=== PATIENT | male | born 1965 | race Caucasian/White ===

== ENCOUNTER 2018-09-09 03:57 | Emergency (ER) | payer OTHER ==
--- OUTSIDE RECORDS SUMMARY | 2018-09-09 04:00 | XMS REPORT ---
:1965 Author Organization [employer] Care Team Providers Name Role Phone Malachi Venancio Provider Role Unavailable Allergies, Adverse Reactions, Alerts Substance Reaction Event Type N.K.D.A. Info Not Available Non Drug Allergy Problems Problem Type Condition Code Onset Dates Condition Status Problem History of basal cell cancer Z85.828 Active Problem HTN, goal below 140/90 I10 Active Problem Anxiety F41.9 Active Assessment Anxiety F41.9 Active Assessment History of basal cell cancer Z85.828 Active Assessment HTN, goal below 140/90 I10 Active Medications Medication Code Code Instructions Start End Status Dosage System Date Date Lisinopril-Hyd [facility] 52266423519 20-25 MG Orally Active 1.5 tablet rochlorothiazi Once a day de Centrum Silver [facility] [id number] - Orally Active as directed BusPIRone HCl [facility] [id number] 30 MG Orally Active 1 tablet Twice a day Results No Known Results Summary Purpose [employer] Submission
[2018-09-09] MEDS ORDERED: ALBUTEROL 2.5 MG/3 ML NEB SOL ONE (05:02)
--- NOTE | 2018-09-09 05:25 | EDPHYS ---
Physician Documentation [facility] Name: Baldemar Garcia Age: 53 yrs Sex: Male : 1965 Arrival Date: 09/09/2018 Time: 03:59 Bed 15 Private MD: ED Physician Patricio Olvera HPI: 09/09 05:20 This 53 yrs old Male presents to ER via Ambulatory with complaints of Cough, gs Breathing Difficulty. 05:20 The patient or guardian reports cough, described as mild. Onset: The symptoms/episode gs began/occurred 5 day(s) ago. Severity of symptoms: At their worst the symptoms were moderate, in the emergency department the symptoms are unchanged. Modifying factors: The symptoms are alleviated by nothing, the symptoms are aggravated by cold weather. Associated signs and symptoms: Pertinent positives: SINUS CONGESTION. The patient has experienced similar episodes in the past, a few times. Historical: - Allergies: 04:11 No Known Allergies; fc - Home Meds: 04:11 lisinopril-hydrochlorothiazide 20-25 mg oral tab 1 tab once daily [Active]; Nexium 40 fc mg Oral cpDR 1 cap daily prn [Active]; - PMHx: 04:11 Hypertension; GERD; fc - PSHx: 04:11 Knee surgery; fc - Immunization history:: Last tetanus immunization: unknown, Flu vaccine is not up to date. - Social history:: Smoking status: Patient/guardian denies using tobacco, Patient uses alcohol, on a daily basis. claims drinking about a 6 pack/day. - Ebola Screening: : Patient negative for fever greater than or equal to 101.5 degrees Fahrenheit, and additional compatible Ebola Virus Disease symptoms Patient denies exposure to infectious person Patient denies travel to an Ebola-affected area in the 21 days before illness onset. ROS: 05:20 All other systems are negative. gs Exam: 05:16 ECG was reviewed by the Attending Physician. gs 05:20 Eyes: Pupils equal round and reactive to light, extra-ocular motions intact. Lids and gs lashes normal. Conjunctiva and sclera are non-icteric and not injected. Cornea within normal limits. Periorbital areas with no swelling, redness, or edema. ENT: Nares patent. No nasal discharge, no septal abnormalities noted. Tympanic membranes are normal and external auditory canals are clear. Oropharynx with no redness, swelling, or masses, exudates, or evidence of obstruction, uvula midline. Mucous membranes moist. Neck: Trachea midline, no thyromegaly or masses palpated, and no cervical lymphadenopathy. Supple, full range of motion without nuchal rigidity, or vertebral point tenderness. No Meningismus. Chest/axilla: Normal chest wall appearance and motion. Nontender with no deformity. No lesions are appreciated. 05:20 Abdomen/GI: Soft, non-tender, with normal bowel sounds. No distension or tympany. No guarding or rebound. No evidence of tenderness throughout. Back: No spinal tenderness. No costovertebral tenderness. Full range of motion. Skin: Warm, dry with normal turgor. Normal color with no rashes, no lesions, and no evidence of cellulitis. MS/ Extremity: Pulses equal, no cyanosis. Neurovascular intact. Full, normal range of motion. Neuro: Awake and alert, GCS 15, oriented to person, place, time, and situation. Cranial nerves II-XII grossly intact. Motor strength 5/5 in all extremities. Sensory grossly intact. Cerebellar exam normal. Normal gait. 05:20 Constitutional: The patient appears alert, awake. 05:20 Head/face: Sinus tenderness, that is moderate, is located over the right maxillary sinus and left maxillary sinus. 05:20 Cardiovascular: Rate: tachycardic, Rhythm: regular, Pulses: no pulse deficits are appreciated. 05:20 Respiratory: the patient does not display signs of respiratory distress, Respirations: no acute changes, is not noted, accessory muscle usage, is absent, Breath sounds: rhonchi, that are mild, are scattered. Vital Signs: 04:00 BP 130 / 101; Pulse 108; Resp 20; Temp 98.0(O); Pulse Ox 99% on R/A; Weight 92.99 kg fc (R); Height 5 ft. 8 in. (172.72 cm) (R); Pain 3/10; 05:25 BP 142 / 87; Pulse 103; Resp 20 S; Pulse Ox 99% on R/A; cc3 04:00 Body Mass Index 31.17 (92.99 kg, 172.72 cm) MDM: 04:40 Patient medically screened. 05:20 Differential Diagnosis: Bronchitis Upper Respiratory Infection Sinusitis. Data gs reviewed: vital signs, nurses notes, EKG, radiologic studies. Response to treatment: the patient's symptoms have mildly improved after treatment, and as a result, I will discharge patient. 09/09 04:21 Order name: XRAY Chest Pa And Lat (2 Views) 09/09 04:40 Order name: EKG - Nurse/Tech; Complete Time: 05:02 EC:16 Rate is 87 beats/min. Rhythm is regular. ID interval is normal. QRS interval is normal. gs QT interval is normal. T waves are Flattened. Clinical impression: NSR w/ Non-specific ST/T Changes. Interpreted by me. Administered Medications: 05:00 Drug: Albuterol 2.5 mg Route: Inhalation; cc3 05:30 Follow up: Response: No adverse reaction; Marked relief of symptoms cc3 Disposition: 09/09/18 05:24 Discharged to Home. Impression: Acute maxillary sinusitis. - Condition is Stable. - Discharge Instructions: Sinusitis, Adult. - Prescriptions for Prednisone 20 mg Oral Tablet - take 1 tablet by ORAL route once daily for 5 days; 5 tablet. Zithromax Z- Bal 250 mg Oral Tablet - take 1 tablet by ORAL route as directed for 5 days Day 1 - take two (2) tablets one time. Day 2, 3, 4 , 5 take one (1) tablet once daily.; 6 tablet. Albuterol Sulfate 90 mcg/actuation - inhale 1-2 puff by INHALATION route every 4-6 hours; 1 Inhaler. - Medication Reconciliation Form, Thank You Letter, Antibiotic Education, Prescription Opioid Use form. - Follow up: Private Physician; When: 2 - 3 days; Reason: Re-evaluation by your physician. - Notes: USE SALINE NASAL IRRIGATION 3-4 TIMES A DAY, ZYRTEC PRN Signatures: Dispatcher [employer] EDKS Fátima Scruggs RN RN Patricio Downs MD MD gs Cordel, Charlene cc3 Corrections: (The following items were deleted from the chart) 05:37 05:24 09/09/2018 05:24 Discharged to Home. Impression: Acute maxillary sinusitis. cc3 Condition is Stable. Forms are Medication Reconciliation Form, Thank You Letter, Antibiotic Education, Prescription Opioid Use. Follow up: Private Physician; When: 2 - 3 days; Reason: Re-evaluation by your physician.
--- NOTE | 2018-09-09 05:25 | ER ---
Nurse's Notes [facility] Name: Baldemar Garcia Age: 53 yrs Sex: Male : 1965 Arrival Date: 09/09/2018 Time: 03:59 Bed 15 Private MD: Diagnosis: Acute maxillary sinusitis Presentation: 09/09 04:00 Presenting complaint: Patient states: that for the past week he has had severe sinus fc problems. 2 days ago he started to have sore throat, cough with green sputum, runny eyes and nasal congestion. States that only when he coughs does he have upper chest pain. Transition of care: patient was not received from another setting of care. Onset of symptoms was September 02, 2018. Risk Assessment: Do you want to hurt yourself or someone else? Patient reports no desire to harm self or others. Initial Sepsis Screen: Does the patient meet any 2 criteria? HR > 90 bpm. Yes Does the patient have a suspected source of infection? No. Patient's initial sepsis screen is negative. Care prior to arrival: None. 04:00 Method Of Arrival: Ambulatory fc 04:00 Acuity: OLEG 3 fc Triage Assessment: 04:12 General: Appears uncomfortable, well groomed, Behavior is cooperative, appropriate for fc age, anxious. Pain: Complains of pain in neck Pain currently is 3 out of 10 on a pain scale. at worst was 9 out of 10 on a pain scale. Quality of pain is described as burning, aching, Pain began 2-3 days ago. Is episodic, Aggravated by eating, drinking, coughing. EENT: Reports nasal congestion nasal discharge that is green. Neuro: Level of Consciousness is awake, alert, obeys commands, Oriented to person, place, time, situation, Appropriate for age. Cardiovascular: No deficits noted. Respiratory: Reports cough that is productive, pain with cough Airway is patent Trachea midline Respiratory effort is even, unlabored, Respiratory pattern is regular, symmetrical, Onset: The symptoms/episode began/occurred gradually, the patient has mild shortness of breath. GI: No deficits noted. : No deficits noted. Derm: Skin is intact, Skin is dry, Skin is flushed, Skin temperature is warm. Musculoskeletal: Circulation, motion, and sensation intact. Capillary refill < 3 seconds, Range of motion: intact in all extremities. Historical: - Allergies: 04:11 No Known Allergies; fc - Home Meds: 04:11 lisinopril-hydrochlorothiazide 20-25 mg oral tab 1 tab once daily [Active]; Nexium 40 fc mg Oral cpDR 1 cap daily prn [Active]; - PMHx: 04:11 Hypertension; GERD; fc - PSHx: 04:11 Knee surgery; fc - Immunization history:: Last tetanus immunization: unknown, Flu vaccine is not up to date. - Social history:: Smoking status: Patient/guardian denies using tobacco, Patient uses alcohol, on a daily basis. claims drinking about a 6 pack/day. - Ebola Screening: : Patient negative for fever greater than or equal to 101.5 degrees Fahrenheit, and additional compatible Ebola Virus Disease symptoms Patient denies exposure to infectious person Patient denies travel to an Ebola-affected area in the 21 days before illness onset. Screenin:10 Abuse screen: Denies threats or abuse. Nutritional screening: No deficits noted. fc Tuberculosis screening: No symptoms or risk factors identified. Fall Risk None identified. Assessment: 04:15 General: Appears in no apparent distress. comfortable, Behavior is calm, cooperative, cc3 appropriate for age. Pain: Complains of pain in neck. Neuro: Level of Consciousness is awake, alert, obeys commands, Oriented to person, place, time, situation, Appropriate for age. Cardiovascular: Patient's skin is warm and dry. Rhythm is regular. Respiratory: Airway is patent Respiratory effort is even, unlabored, Respiratory pattern is regular, symmetrical, Breath sounds with rhonchi bilaterally. GI: Abdomen is round non-distended. : No signs and/or symptoms were reported regarding the genitourinary system. EENT: No signs and/or symptoms were reported regarding the EENT system. Derm: No signs and/or symptoms reported regarding the dermatologic system. Musculoskeletal: Circulation, motion, and sensation intact. Range of motion:. 05:30 Reassessment: Patient appears in no apparent distress at this time. Patient and/or cc3 family updated on plan of care and expected duration. Pain level reassessed. Patient is alert, oriented x 3, equal unlabored respirations, skin warm/dry/pink. Dr. Olvera discharged the patient home with prescription given. No IV cannula in situ. Patient left ER vitally stable and ambulatory. Vital Signs: 04:00 BP 130 / 101; Pulse 108; Resp 20; Temp 98.0(O); Pulse Ox 99% on R/A; Weight 92.99 kg (R); Height 5 ft. 8 in. (172.72 cm) (R); Pain 3/10; 05:25 BP 142 / 87; Pulse 103; Resp 20 S; Pulse Ox 99% on R/A; cc3 04:00 Body Mass Index 31.17 (92.99 kg, 172.72 cm) ED Course: 03:59 Patient arrived in ED. ds1 04:00 Arm band placed on Patient placed in an exam room, on a stretcher. 04:07 Patricio Olvera MD is Attending Physician. 04:08 Triage completed. fc 04:10 Patient has correct armband on for positive identification. Bed in low position. Call light in reach. Pulse ox on. NIBP on. 04:10 No provider procedures requiring assistance completed. fc 04:15 Flavia Claire is Primary Nurse. cc3 04:41 Patient moved to radiology via wheelchair. kw 04:41 X-ray completed. Patient tolerated procedure well. kw 04:41 Patient moved back from radiology. kw 04:42 XRAY Chest Pa And Lat (2 Views) In Process Unspecified. EDMS 05:30 Patient did not have IV access during this emergency room visit. cc3 Administered Medications: 05:00 Drug: Albuterol 2.5 mg Route: Inhalation; cc3 05:30 Follow up: Response: No adverse reaction; Marked relief of symptoms cc3 Outcome: 05:24 Discharge ordered by . 05:30 Discharged to home ambulatory. cc3 05:30 Condition: stable 05:30 Discharge instructions given to patient, Instructed on discharge instructions, follow up and referral plans. medication usage, Demonstrated understanding of instructions, follow-up care, medications, Prescriptions given X 3. 05:37 Patient left the ED. cc3 Signatures: Dispatcher [employer] EDKS Fátima Scruggs RN RN Shadia Montero ds1 Mag Pritchard kw Patricio Olvera MD MD gs Cordel, Charlene cc3 Corrections: (The following items were deleted from the chart) 05:53 04:15 Respiratory: Airway is patent Respiratory effort is even, unlabored, Respiratory cc3 pattern is regular, symmetrical, Breath sounds are clear bilaterally. cc3
--- NOTE | 2018-09-09 08:46 | RAD REPORT ---
EXAM DESCRIPTION: Cassie Brown (2 Views)09/09/2018 4:44 am CLINICAL HISTORY: Cough COMPARISON: July 2017 FINDINGS: The lungs appear clear of acute infiltrate. The heart is normal size IMPRESSION: No acute abnormalities displayed
--- NOTE | 2018-09-09 12:17 | EKG ---
Test Date: 2018-09-09 Test Time: 04:56:36 Rehab Office Coordinator: KONRAD MEASUREMENT RESULTS: Intervals: Rate: 87 OK: 180 QRSD: 90 QT: 364 QTc: 438 Gary: P: 38 OK: 180 QRS: 15 T: 15 INTERPRETIVE STATEMENTS: Normal sinus rhythm Normal ECG Compared to ECG 08/04/2017 20:05:58 Sinus tachycardia no longer present ST (T wave) deviation no longer present Electronically Signed On 09-09-18 12:16:45 CDT by Francisco Hua
== END 2018-09-09 05:37 | disposition home or self-care (01) ==
LOC: ER 03:57
DX: J01.00 Acute maxillary sinusitis, unspecified (principal); I10 Essential (primary) hypertension
CPT/HCPCS: 71046; 93005; 99284

== ENCOUNTER 2022-06-26 05:46 | Inpatient (IN) | payer OTHER, SELFPAY ==
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
[2022-06-26] MEDS ORDERED: NA CHLORIDE 0.9% 1,000 ML ONE ×2 (06:15→07:06)
[2022-06-26 06:42] LABS: Hematocrit 34.8 % (39.6-49.0); Lymphocytes % 9.8 % (15.3-44.8); MCV 104.8 fL (80-100); MPV 8.3 fL (7.6-11.3); RBC Red Blood Cell Count 3.32 M/uL (4.33-5.43)
[2022-06-26] MEDS ORDERED: PANTOPRAZOLE 40 MG INJ ONE (06:42)
[2022-06-26 07:02] LABS: Troponin High Sensitivity 10.5 pg/mL (<58.9)
[2022-06-26 07:04] LABS: Potassium 1.9 mmol/L (3.5-5.1)
[2022-06-26] MEDS ORDERED: NA CHLORIDE 0.9% 100 ML IV ONE (07:23)
[2022-06-26] MEDS ORDERED: PIPERACIL/TAZO 3.375 GM VIAL IV ONE (07:24)
--- NOTE | 2022-06-26 07:42 | RAD REPORT ---
EXAM DESCRIPTION: RAD - Chest Single View - 06/26/2022 6:38 am CLINICAL HISTORY: Dizziness COMPARISON: Two view chest 09/09/2018 TECHNIQUE: AP portable chest image was obtained 06/26/2022 6:38 am . FINDINGS: Lungs are clear. Heart and vasculature are normal. No measurable pleural effusion and no p neumothorax. No acute bony abnormality seen. No acute aortic findings suspected. No significant taveras e from comparison study. IMPRESSION: No acute cardiopulmonary process.
--- NOTE | 2022-06-26 07:57 | RAD REPORT ---
EXAM DESCRIPTION: CT - Chest Abd Pelvis Wo Con - 06/26/2022 7:22 am CLINICAL HISTORY: PAIN COMPARISON: No comparisons TECHNIQUE: Axial 5 millimeter thick images of the chest, abdomen and pelvis were obtained without IV contrast. Oral contrast was not administered. All CT scans are performed using dose optimization technique as appropriate and may include automated exposure control or mA/KV adjustment according to patient size. FINDINGS: No suspicious mass or infiltrate in the lung parenchyma. Two small less than 5 mm juxtaple ural nodules are seen along the major fissure right lower lung field. These are not regarded as signi ficant. No pneumothorax or pleural effusion. No chest wall mass or abnormal axillary lymphadenopath y seen. Mediastinal and hilar regions show no mass or lymphadenopathy. No significant cardiac findi ng. No displaced rib fractures are present. There are fractures evident near the costochondral juncti ons of the right seventh and eighth ribs and the left seventh rib. Air is present within the right ax illary vein and brachiocephalic vein. This is probably related to IV access in the right upper extrem ity. The liver, spleen and pancreas show no acute findings for non contrast imaging. Liver attenuation rel ative to the spleen indicates a diffuse fatty infiltration. No biliary tree dilatation. There is slig ht variable density within the lumen of the gallbladder that could be stones or sludge. Wall thickeni ng and edema of the gallbladder are not evident. No hydronephrosis of either kidney. No obstructing or nonobstructing calculi. In the anterior mid rig ht kidney there is a homogeneous 18 mm round hyperdense mass. This is most likely a high protein cont ent cyst. No comparison is available. Follow-up outpatient ultrasound could be performed to confirm t hat this is a cyst. Isodense masses and pyelonephritis cannot be excluded on non contrast imaging. No adrenal abnormalities. No urinary bladder abnormalities. No dilated bowel loops or focal ball bowel wall thickening. No free air, free fluid or inflammatory stranding. No hernia, mass or bulky lymphadenopathy. Appendix is normal. SI joint degenerative changes are present with partial fusion of the right SI joint. No vertebral bod y compression fracture. Sternum is intact. Facet joint degenerative changes are present. Patient has prominent degenerative changes in the midthoracic spine. No pathologic component seen. IMPRESSION: Nondisplaced fractures are present near the costochondral junctions of the right seventh and eighth ribs and the left seventh rib. No pulmonary contusion, pneumothorax or other acute findings in the chest. No acute or emergent abdomen or pelvis findings. Nonacute findings are detailed in the body of the re port. CT abdomen and pelvis imaging shows no significant or suspicious finding.
[2022-06-26] MEDS ORDERED: POTASSIUM CL SA 10 MEQ TAB PO ONE ×2 (07:58→16:00)
[2022-06-26 08:02] LABS: SARS-COV-2 RT PCR NEGATIVE (NEGATIVE)
[2022-06-26 08:10] LABS: Anisocytosis 1+; Blood Morphology Comment NOTED (NOT SEEN); Hypochromasia 1+; Macrocytosis 1+; Platelet Estimate ADEQ; White Blood Cell Scan OK (OK)
--- NOTE | 2022-06-26 08:41 | RAD REPORT ---
EXAM DESCRIPTION: CT - CTHCSPWOC - 06/26/2022 8:29 am CLINICAL HISTORY: fall, head injury, neck pain COMPARISON: No comparisons TECHNIQUE: Axial 5 mm thick images of the head were obtained. Axial 2 mm thick images of the cervic al spine were obtained with sagittal and coronal reconstruction images generated and reviewed. All CT scans are performed using dose optimization technique as appropriate and may include automated exposure control or mA/KV adjustment according to patient size. FINDINGS: No intracranial hemorrhage, mass, edema or acute intracranial finding. No suspicion for ac hu infarction. No extra-axial fluid collections. No cortical edema or sulcal effacement. Volume loss changes are evident greater than expected for age. Ventricles are in proportion to any volume loss. Mild chronic ischemic pattern seen in the cerebral white matter. Mastoid air cells and paranasal sinu ses are clear. No globe or orbit abnormality seen. Cervical body height and alignment are normal. C5-6 disc space narrowing present with endplate spurri ng. Uncovertebral joint hypertrophy at this level causes mild left-side and severe right-side bony fo raminal stenosis. No fracture or acute bony abnormality. Central canal detail is inherently limited. No paraspinal mass or hematoma. IMPRESSION: Negative CT head examination for acute finding. Negative CT cervical spine examination for acute finding. Advanced degenerative disc disease at C5-6 with severe bony foraminal stenosis on the right.
[2022-06-26 10:37] LABS: Urine Blood Negative (Negative); Urine Glucose Negative (Negative); Urine Protein Negative (Negative)
--- NOTE | 2022-06-26 10:43 | ER ---
Nurse's Notes [facility] Name: Baldemar Garcia Age: 57 yrs Sex: Male : 1965 Arrival Date: 06/26/2022 Time: 05:49 Bed 19 Private MD: Diagnosis: Severe sepsis with septic shock;Acute kidney injury;Hypokalemia;Hypomagnesemia Presentation: 06/26 06:05 Chief complaint: Patient states: he has been dizzy for the last three weeks and it is bb getting worse pt fell twice last night the dizziness is like a "disoriented dizzy". Coronavirus screen: At this time, the client does not indicate any symptoms associated with coronavirus-19. Ebola Screen: No symptoms or risks identified at this time. 06:05 Method Of Arrival: Wheelchair bb 06:07 Initial Sepsis Screen: Does the patient meet any 2 criteria? No. Patient's initial bb sepsis screen is negative. Does the patient have a suspected source of infection? No. Patient's initial sepsis screen is negative. Risk Assessment: Do you want to hurt yourself or someone else? Patient reports no desire to harm self or others. Onset of symptoms was May 2022. 06:07 Acuity: OLEG 2 bb Historical: - Allergies: 06:07 No Known Allergies; bb - Home Meds: 06:07 lisinopril-hydrochlorothiazide 20-25 mg Oral tab 1 tab once daily [Active]; bb - PMHx: 06:07 GERD; Hypertension; bb - PSHx: 06:07 bilateral knee surgery; bb - Immunization history:: Client reports having NOT received the Covid vaccine. - Social history:: Smoking status: Patient denies any tobacco usage or history of. Screenin:35 [facility] ED Fall Risk Assessment (Adult) History of falling in the last 3 months, ap3 including since admission No falls in past 3 months (0 pts) Confusion or Disorientation No (0 pts) Intoxicated or Sedated No (0 pts) Impaired Gait Yes (1 pt) Mobility Assist Device Used No (0 pt) Altered Elimination No (0 pt) Score/Fall Risk Level 3 or more points = High Risk Oriented to surroundings, Maintained a safe environment, Educated pt \\T\\ family on fall prevention, incl call for assistance when getting out of bed, Assessed \\T\\ reinforced patient's understanding of fall precautions, Provided non-skid footwear, Hourly rounding (assess needs \\T\\ fall precautionary measures) done, Used ambulatory aids as needed (educated on \\T\\ assisted with), Used gait belt as appropriate Implemented a Fall Risk Plan of Care, Remained with patient while ambulating. Abuse screen: Denies threats or abuse. Nutritional screening: No deficits noted. Tuberculosis screening: No symptoms or risk factors identified. Assessment: 07:36 General: Appears ill, Behavior is calm, cooperative, appropriate for age, Reports ap3 fatigue for. Pain: Denies pain. Neuro: Reports dizziness, when standing. Cardiovascular: Patient's skin is warm and dry. Respiratory: Airway is patent Respiratory effort is even, unlabored, Respiratory pattern is regular, symmetrical. 09:15 Reassessment: Patient appears in no apparent distress at this time. Patient and/or kr3 family updated on plan of care and expected duration. Pain level reassessed. Patient is alert, oriented x 3, equal unlabored respirations, skin warm/dry/pink. 10:15 Reassessment: Patient appears in no apparent distress at this time. Patient and/or kr3 family updated on plan of care and expected duration. Pain level reassessed. Patient is alert, oriented x 3, equal unlabored respirations, skin warm/dry/pink. 12:07 Reassessment: Patient appears in no apparent distress at this time. Patient and/or kr3 family updated on plan of care and expected duration. Pain level reassessed. patient states " I am feeling better than when I got here". Patient now had diarrhea and has made 4 trips to the bathroom.. 13:59 Reassessment: Patient appears in no apparent distress at this time. Patient and/or kr3 family updated on plan of care and expected duration. Pain level reassessed. Patient is alert, oriented x 3, equal unlabored respirations, skin warm/dry/pink. patient has had several BM . 18:50 Reassessment: Patient appears in no apparent distress at this time. Patient and/or kr3 family updated on plan of care and expected duration. Pain level reassessed. Patient is alert, oriented x 3, equal unlabored respirations, skin warm/dry/pink. Vital Signs: 06:05 BP 69 / 53; Pulse 104; Resp 16 S; Temp 97.9(O); Pulse Ox 98% on R/A; Weight 79.38 kg bb (R); Height 5 ft. 8 in. (172.72 cm) (R); Pain 0/10; 07:34 BP 83 / 70; Pulse 77; Resp 17; Pulse Ox 94% ; ap3 07:49 BP 87 / 68; Pulse 79; Pulse Ox 97% on R/A; ap3 08:06 BP 95 / 65; Pulse 83; Pulse Ox 97% on R/A; ap3 09:37 BP 106 / 65; Pulse 78; Resp 18; Pulse Ox 100% ; kr3 10:35 BP 99 / 74; Pulse 77; Resp 18; Pulse Ox 98% on R/A; kr3 11:30 BP 99 / 73; Pulse 79; Resp 18; Pulse Ox 100% on R/A; kr3 12:30 BP 98 / 59; Pulse 72; Resp 18; Pulse Ox 99% on R/A; kr3 13:30 BP 92 / 55; Pulse 74; Resp 18; Pulse Ox 100% on R/A; kr3 18:50 BP 96 / 64; Pulse 62; Pulse Ox 100% on R/A; kr3 06:05 Body Mass Index 26.61 (79.38 kg, 172.72 cm) bb ED Course: 05:49 Patient arrived in ED. ja2 06:07 Triage completed. bb 06:07 Arm band placed on Patient placed in an exam room, on a stretcher, on pulse oximetry. bb 06:19 Initial lab(s) drawn, by pa, sent to lab. Inserted saline lock: 22 gauge in right ll3 antecubital area, using aseptic technique. Blood collected. 06:22 Jesse Lowery MD is Attending Physician. trav 06:39 XRAY Chest (1 view) In Process Unspecified. EDMS 06:47 Notified ED physician of a critical lab result(s). WBCs of 20.1 Dr Lowery notified. bb 07:08 Attending Physician role handed off by Jesse Lowery MD sd2 07:08 Madyson Robert MD is Attending Physician. sd2 07:10 Mariely Hogue, RN is Primary Nurse. ap3 07:24 Chest Abd Pelvis Wo Con In Process Unspecified. EDMS 07:37 Patient has correct armband on for positive identification. Placed in gown. Bed in low ap3 position. Call light in reach. Side rails up X2. supervisor paper products on. Pulse ox on. NIBP on. Door closed. Noise minimized. Warm blanket given. 08:13 ED physician to see patient. ap3 08:29 Missed attempt(s): 22 gauge in left antecubital area. rs5 08:30 CT Head C Spine In Process Unspecified. EDMS 10:40 Pk Low is Hospitalizing Provider. sd2 12:48 Stool Culture Sent. kr3 18:50 No provider procedures requiring assistance completed. Patient admitted, IV remains in kr3 place. Administered Medications: 06:34 Drug: NS 0.9% 1000 ml Route: IV; Rate: 1 bolus; Site: right antecubital; ll3 06:50 Drug: ProTONIX (pantoprazole) 40 mg Route: IVP; Site: right antecubital; ll3 08:57 Follow up: Response: No adverse reaction ap3 07:05 Drug: NS 0.9% 1000 ml Route: IV; Rate: 1 bolus; Site: right antecubital; ll3 08:57 Follow up: IV Status: Completed infusion ap3 08:05 Drug: Potassium Chloride 40 mEq Route: PO; ap3 08:56 Follow up: Response: No adverse reaction ap3 11:26 Drug: Zosyn (piperacillin-tazobactam) 3.375 grams Route: IVPB; Infused Over: 60 mins; kr3 Site: right antecubital; 13:46 Drug: Magnesium Sulfate 2 grams Route: IVPB; Infused Over: 2 hrs; Site: right kr3 antecubital; Medication: 08:14 VIS not applicable for this client. ap3 Outcome: 10:42 Decision to Hospitalize by Provider. sd2 18:50 Admitted to Med/surg kr3 18:50 Condition: stable 18:50 Instructed on the need for admit. 18:50 Patient left the ED. kr3 Signatures: Dispatcher [employer] EDJesse Thompson MD MD cha Ballard, Brenda, RN RN Mariely Romo RN RN ap3 Natalia Rae Lynsea, RN RN elías3 Madyson Robert MD MD sd2 Kimberly Butt RN RN kr3 Efraín Crenshaw rs5
--- NOTE | 2022-06-26 10:43 | EDPHYS ---
Physician Documentation [facility] Name: Baldemar Garcia Age: 57 yrs Sex: Male : 1965 Arrival Date: 06/26/2022 Time: 05:49 Bed 19 Private MD: ED Physician Madyson Robert Historical: - Allergies: 06/26 06:07 No Known Allergies; bb - Home Meds: 06:07 lisinopril-hydrochlorothiazide 20-25 mg Oral tab 1 tab once daily [Active]; bb - PMHx: 06:07 GERD; Hypertension; bb - PSHx: 06:07 bilateral knee surgery; bb - Immunization history:: Client reports having NOT received the Covid vaccine. - Social history:: Smoking status: Patient denies any tobacco usage or history of. Exam: 08:39 ECG was reviewed by the Attending Physician. NSR, rate 77, no STEMI criteria, sd2 occasional PAC present Vital Signs: 06:05 BP 69 / 53; Pulse 104; Resp 16 S; Temp 97.9(O); Pulse Ox 98% on R/A; Weight 79.38 kg bb (R); Height 5 ft. 8 in. (172.72 cm) (R); Pain 0/10; 07:34 BP 83 / 70; Pulse 77; Resp 17; Pulse Ox 94% ; ap3 07:49 BP 87 / 68; Pulse 79; Pulse Ox 97% on R/A; ap3 08:06 BP 95 / 65; Pulse 83; Pulse Ox 97% on R/A; ap3 09:37 BP 106 / 65; Pulse 78; Resp 18; Pulse Ox 100% ; kr3 10:35 BP 99 / 74; Pulse 77; Resp 18; Pulse Ox 98% on R/A; kr3 11:30 BP 99 / 73; Pulse 79; Resp 18; Pulse Ox 100% on R/A; kr3 12:30 BP 98 / 59; Pulse 72; Resp 18; Pulse Ox 99% on R/A; kr3 13:30 BP 92 / 55; Pulse 74; Resp 18; Pulse Ox 100% on R/A; kr3 18:50 BP 96 / 64; Pulse 62; Pulse Ox 100% on R/A; kr3 06:05 Body Mass Index 26.61 (79.38 kg, 172.72 cm) MDM: 06:22 Patient medically screened. trav 08:34 Transition of care: Care assumed from Jesse Lowery MD. ED course: Care assumed from sd2 Dr. Lowery. I have seen and evaluated the patient. He is awake, alert and oriented x3 with improved BP and MAP of 72 at time of my evaluation. Reports ongoing dizziness, lightheadedness and near syncope upon standing for the past 3 weeks. Reports started light and has worsened to where he can no longer ambulate without leaning onto something and has had recurrent falls. Reports he did hit his head on a countertop with one fall and woke up on the floor and is unsure if he passed out. Denies any fevers or other infectious symptoms. Pt has continued taking his home BP meds regularly at home and has not had any recent changes in his medications. CT chest/abdomen/pelvis with nondisplaced rib fractures. Pt without significant pain from these. K critically low. Mg and procalcitonin added on as well as additional IVFs to meet 30 mL/kg fluid bolus requirement for possible sepsis. No current source of infection identified at this time but signs of end organ damage present with DELL. . 10:39 Data reviewed: lab test result(s), EKG, radiologic studies. Counseling: I had a sd2 detailed discussion with the patient and/or guardian regarding: the historical points, exam findings, and any diagnostic results supporting the discharge/admit diagnosis, lab results, radiology results, the need for further work-up and treatment in the hospital. ED course: BP stabilized at 106/65 and remains within this range after 2.5L of fluid and full 30 mL/kg bolus received. Broad spectrum abx given and cultures obtained and sent. No source of infection identified at this time. CT head and C-spine negative. UA negative. Discussed case with hospitalist who will admit for further management at this time. . 06/26 06:21 Order name: Basic Metabolic Panel; Complete Time: 07:48 ll3 06/26 06:21 Order name: CBC with Diff; Complete Time: 08:13 ll3 06/26 06:21 Order name: Troponin HS; Complete Time: 07:48 ll3 06/26 06:32 Order name: Type And Screen; Complete Time: 08:05 trav 06/26 06:34 Order name: BNP; Complete Time: 07:48 trav 06/26 06:34 Order name: Lactate w/ 2H reflex if indic.; Complete Time: 07:48 [facility] 06/26 06:34 Order name: COVID-19/FLU A+B; Complete Time: 08:05 [facility] 06/26 06:34 Order name: Urine Culture [facility] 06/26 06:47 Order name: Blood Culture Adult (2) [facility] 06/26 06:48 Order name: Lipase; Complete Time: 10:31 [facility] 06/26 06:48 Order name: CBC Smear Scan; Complete Time: 08:13 [facility] 06/26 07:40 Order name: ABO/RH no charge; Complete Time: 07:48 [facility] 06/26 07:49 Order name: Procalcitonin; Complete [facility]: 11:07 [facility] 06/[facility] 07:50 Order name: Magnesium; Complete Time: 10:31 [facility] 06/26 06:21 Order name: XRAY Chest (1 view); Complete Time: 07:48 [facility] 06/26 07:10 Order name: Chest Abd Pelvis Wo Con; Complete Time: 08:05 [facility] 06/26 08:13 Order name: CT Head C Spine; Complete Time: 08:45 [facility] 06[facility] 10:30 Order name: Lactate Sepsis 2 HR Follow-up; Complete Time: 10:31 [facility] 06/26 10:37 Order name: Urine Dipstick-Ancillary; Complete Time: 11:07 [facility] 06/26 12:09 Order name: Stool Culture [facility] 06/26 12:51 Order name: Fecal Leukocyte Stain [facility] 06/26 12:51 Order name: Ova and Parasites [facility] 06/26 12:53 Order name: Hemoglobin A1c [facility] 06/26 12:53 Order name: Lipid Profile [facility] 06/26 13:00 Order name: Basic Metabolic Panel [facility] 06/26 14:19 Order name: Protime (+INR) [facility] 06/26 14:33 Order name: Phosphorus [facility] 06/26 14:33 Order name: Creatine Phosphokinase [facility] 06/26 14:33 Order name: Magnesium [facility] 06/26 06:21 Order name: EKG; Complete Time: 06:22 3 06/26 06:21 Order name: Cardiac monitoring; Complete Time: 07:11 3 06/26 06:21 Order name: EKG - Nurse/Tech; Complete Time: 07:38 3 06/26 06:21 Order name: IV Saline Lock; Complete Time: 06:21 3 06/26 06:21 Order name: Labs collected and sent; Complete Time: 06:21 3 06/26 06:21 Order name: O2 Per Protocol; Complete Time: 06:21 3 06/26 06:21 Order name: O2 Sat Monitoring; Complete Time: 06:21 3 06/26 06:34 Order name: Urine Dipstick-Ancillary (obtain specimen); Complete Time: 09:55 trav 06/26 12:49 Order name: CONS Physician Consult [facility] 06/26 12:54 Order name: ERT ORTHOSTATIC V/S [facility] 06/26 12:56 Order name: Echo with Doppler [facility] 06/26 12:56 Order name: Carotid Artery Bilateral EDMS Administered Medications: 06:34 Drug: NS 0.9% 1000 ml Route: IV; Rate: 1 bolus; Site: right antecubital; ll3 06:50 Drug: ProTONIX (pantoprazole) 40 mg Route: IVP; Site: right antecubital; ll3 08:57 Follow up: Response: No adverse reaction ap3 07:05 Drug: NS 0.9% 1000 ml Route: IV; Rate: 1 bolus; Site: right antecubital; ll3 08:57 Follow up: IV Status: Completed infusion ap3 08:05 Drug: Potassium Chloride 40 mEq Route: PO; ap3 08:56 Follow up: Response: No adverse reaction ap3 11:26 Drug: Zosyn (piperacillin-tazobactam) 3.375 grams Route: IVPB; Infused Over: 60 mins; kr3 Site: right antecubital; 13:46 Drug: Magnesium Sulfate 2 grams Route: IVPB; Infused Over: 2 hrs; Site: right kr3 antecubital; Disposition Summary: 06/26/22 10:42 Hospitalization Ordered Hospitalization Status: Inpatient Admission sd2 Provider: Pk Low Condition: Stable sd2 Problem: new sd2 Symptoms: have improved sd2 Bed/Room Type: Standard sd2 Location: Telemetry/MedSurg (Inpatient)(06/26/22 16:39) dw Room Assignment: [facility](06/26/22 16:39) dw Diagnosis - Severe sepsis with septic shock sd2 - Acute kidney injury sd2 - Hypokalemia sd2 - Hypomagnesemia sd2 Forms: - Medication Reconciliation Form sd2 - SBAR form sd2 Signatures: Dispatcher [employer] EDMS Sandy Palacios, RN RN Jesse Link MD MD cha Ballard, Brenda RN RN Mariely Romo RN RN ap3 Katherine Lang RN RN ll3 Madyson Robert MD MD sd2 Kimberly Butt RN RN kr3 Marialuisa Lockett RN RN ll4 Corrections: (The following items were deleted from the chart) 07:10 06:35 Chest Abdomen Pelvis W Con+CT.RAD.BRZ ordered. EDOR EDMS 12:00 10:42 Telemetry/MedSurg (Inpatient) sd2 ll4 12:00 10:42 sd2 ll4 16:39 12:00 [facility] ER HOLD ll4 dw 16:39 12:00 ERHOLD- ll4 dw
[2022-06-26] MEDS ORDERED: NA CHLORIDE 0.9% 500 ML ONE (11:09)
[2022-06-26] MEDS ORDERED: Magnesium Sulfate 2gm IVPB 2 G/50 ML BAG IV ONE (12:45)
[2022-06-26] MEDS ORDERED: ACETAMINOPHEN 325 MG TABLET PO PRN (12:46)
[2022-06-26] MEDS ORDERED: ONDANSETRON 4 MG/2 ML VIAL IV PRN (13:01)
--- NOTE | 2022-06-26 13:08 | P.HP ---
Certification for Inpatient Patient admitted to: Inpatient With expected LOS: >2 Midnights Patient will require the following post-hospital care: None Practitioner: I am a practitioner with admitting privileges, knowledge of patient current condition, hospital course, and medical plan of care. Services: Services provided to patient in accordance with Admission requirements found in Title 42 Section 412.3 of the Code of Federal Regulations Patient History Date of Service: 06/26/22 Reason for admission: Syncope History of Present Illness: Patient is a 57-year-old male with a past medical history significant for hypertension, GERD who presents with complaint of dizziness that has been ongoing for the past 3 weeks. Patient reported that he feels dizzy whenever he tries to get up and symptoms have become worse over time. Patient indicated that he has been having frequent falls due to dizziness and in one of the fall he hit his head and found himself on the floor. Patient reported that he has been having some near syncopal episodes and had to be holding unto items to prevent falls. Patient reported associated signs and symptoms of lightheadedness and diarrhea. Patient denies any other signs or symptoms. Symptoms are aggravated or relieved by nothing. Patient decided to present to the hospital due to worsening symptoms. Allergies No Known Allergies Allergy (Unverified 08/05/17 00:03) - Past Medical/Surgical History -: GERD -: HTN Past Surgical History: Reviewed- Non-Contributory - Social History Smoking Status: Unknown if ever smoked Alcohol use: No CD- Drugs: No Caffeine use: No Place of Residence: Home Review of Systems General: Unremarkable Eyes: Unremarkable ENT: Unremarkable Respiratory: As per HPI Cardiovascular: Light Headedness Gastrointestinal: Diarrhea Genitourinary: Unremarkable Musculoskeletal: Other (Frequent falls) Integumentary: Unremarkable Neurological: Other (Dizziness, syncope ) Physical Examination - Physical Exam General: Alert, In no apparent distress, Oriented x3, Cooperative HEENT: Atraumatic, PERRLA, Mucous membr. moist/pink, EOMI, Sclerae nonicteric Neck: Supple, 2+ carotid pulse no bruit, No LAD, Without JVD or thyroid abnormality Respiratory: Normal air movement Cardiovascular: No edema, Regular rate/rhythm, Normal S1 S2 Capillary refill: <2 Seconds Gastrointestinal: Normal bowel sounds, Soft and benign, Non-distended, No tend erness Musculoskeletal: No clubbing, No swelling, No contractures, No tenderness Integumentary: No rashes, No significant lesion Neurological: Normal speech, Normal tone, Normal affect Lymphatics: No axilla or inguinal lymphadenopathy - Studies Laboratory Data (last 24 hrs) 06/26/22 10:00: Magnesium 1.5 L 06/26/22 10:00: Lipase 531 H 06/26/22 06:25: WBC 20.10 H*, Hgb 11.9 L, Hct 34.8 L, Plt Count 413 H 06/26/22 06:25: Sodium 132 L, Potassium 1.9 L*, BUN 23 H, Creatinine 2.89 H, Glucose 150 H Assessment and Plan - Plan --Syncope. Likely secondary to hypotension. Echocardiogram pending to assess LV\valvular function and wall motion. Cardiology consulted. Carotid Doppler to rule out any carotid artery stenosis. We will get some orthostatic vital signs. We will await further recommendation from stencil maker. -- Hypotension. Patient was hypotensive on presentation to the ER. Patient reports taking his blood pressure medication without checking blood pressure. We will hold off on BP meds. Continue IV hydration. --Diarrhea. Stool studies pending to rule out any infectious process. Continue IV hydration. --DELL. Likely prerenal. Secondary to fluid losses. Nephrology consulted. Will further recommendations. Continue IV hydration. Avoid nephrotoxins. --GERD. Continue Protonix. --Sepsis POA. No clear source of infection noted. Patient placed on antibiotics. Blood cultures pending. Patient given IV hydration in the ER. Continue supportive care. --Leukocytosis. Blood cultures pending. Continue antibiotics. --Anemia of chronic disease. H&H stable. We will continue to monitor hemoglobin and transfuse if less than 7.0. --Hypophosphatemia\hypomagnesemia\hypokalemia. Replete as needed. Further management per economic research assistant -- DVT prophylaxis with heparin subQ Discharge Plan: Home Plan to discharge in: Greater than 2 days - Advance Directives Does patient have a Living Will: No Does patient have a Durable POA for Healthcare: No - Code Status/Comfort Care Code Status Assessed: Yes Physician Review: Patient Assessed, Agree with Above Assessment and Plan Critical Care: No
[2022-06-26] MEDS ORDERED: VANCOMYCIN 2 GM in NA CHLORIDE 0.9% 500 ML IVPB ONE (14:00)
[2022-06-26] MEDS ORDERED: NACHLORIDE 0.45% 1,000 ML with POTASSIUM CL 40 MEQ IV SCH ×2 (14:00)
[2022-06-26 14:19] LABS: Protime INR 1.44
[2022-06-26 14:33] LABS: Magnesium 1.6 mg/dL (1.6-2.4); Phosphorus 1.7 mg/dL (2.5-4.9)
--- NOTE | 2022-06-26 15:17 | P.CNS ---
Date of Consult: 06/26/22 Reason for Consult: DELL Requesting Physician: papi le Chief Complaint: Dizziness History of Present Illness: 57 yo WM presented with 3 weeks of moderate, persistent dizziness. He reports that he has not been eating or drinking well. He is going through a divorce and has lost 43 lbs over the last 8 months. He denies a history of CKD or NSAIDs. He reports some difficulty with urination. 06:05 Chief complaint: Patient states: he has been dizzy for the last three weeks and it is bb getting worse pt fell twice last night the dizziness is like a "disoriented dizzy". Coronavirus screen: At this time, the client does not indicate any symptoms associated with coronavirus-19. Ebola Screen: No symptoms or risks identified at this time. 06:05 Method Of Arrival: Wheelchair bb 06:07 Initial Sepsis Screen: Does the patient meet any 2 criteria? No. Patient's initial bb sepsis screen is negative. Does the patient have a suspected source of infection? No. Patient's initial sepsis screen is negative. Risk Assessment: Do you want to hurt yourself or someone else? Patient reports no desire to harm self or others. Onset of symptoms was May 2022. Allergies No Known Allergies Allergy (Unverified 08/05/17 00:03) Home medications list reviewed: Yes Review of Systems 10-point ROS is otherwise unremarkable General: Weakness Physical Examination General: In no apparent distress, Oriented x3, Cooperative HEENT: Atraumatic Neck: Supple Respiratory: Clear to auscultation bilaterally Cardiovascular: No edema, Regular rate/rhythm Gastrointestinal: Soft and benign, Non-distended Musculoskeletal: No clubbing, No contractures Integumentary: No rashes, No cyanosis Neurological: Normal speech Laboratory Data (last 24 hrs) 06/26/22 10:00: Magnesium 1.5 L 06/26/22 10:00: Lipase 531 H 06/26/22 06:25: WBC 20.10 H*, Hgb 11.9 L, Hct 34.8 L, Plt Count 413 H 06/26/22 06:25: Sodium 132 L, Potassium 1.9 L*, BUN 23 H, Creatinine 2.89 H, Glucose 150 H Imagings Data: EXAM DESCRIPTION: RAD - Chest Single View - 06/26/2022 6:38 am CLINICAL HISTORY: Dizziness COMPARISON: Two view chest 09/09/2018 TECHNIQUE: AP portable chest image was obtained 06/26/2022 6:38 am . FINDINGS: Lungs are clear. Heart and vasculature are normal. No measurable pleural effusion and no pneumothorax. No acute bony abnormality seen. No acute aortic findings suspected. No significant change from comparison study. IMPRESSION: No acute cardiopulmonary process. EXAM DESCRIPTION: CT - Chest Abd Pelvis Wo Con - 06/26/2022 7:22 am CLINICAL HISTORY: PAIN COMPARISON: No comparisons TECHNIQUE: Axial 5 millimeter thick images of the chest, abdomen and pelvis were obtained without IV contrast. Oral contrast was not administered. All CT scans are performed using dose optimization technique as appropriate and may include automated exposure control or mA/KV adjustment according to patient size. FINDINGS: No suspicious mass or infiltrate in the lung parenchyma. Two small less than 5 mm juxtapleural nodules are seen along the major fissure right lower lung field. These are not regarded as significant. No pneumothorax or pleural effusion. No chest wall mass or abnormal axillary lymphadenopathy seen. Mediastinal and hilar regions show no mass or lymphadenopathy. No significant cardiac finding. No displaced rib fractures are present. There are fractures evident near the costochondral junctions of the right seventh and eighth ribs and the left seventh rib. Air is present within the right axillary vein and brachiocephalic vein. This is probably related to IV access in the right upper extremity. The liver, spleen and pancreas show no acute findings for non contrast imaging. Liver attenuation relative to the spleen indicates a diffuse fatty infiltration. No biliary tree dilatation. There is slight variable density within the lumen of the gallbladder that could be stones or sludge. Wall thickening and edema of the gallbladder are not evident. No hydronephrosis of either kidney. No obstructing or nonobstructing calculi. In the anterior mid right kidney there is a homogeneous 18 mm round hyperdense mass. This is most likely a high protein content cyst. No comparison is available. Follow-up outpatient ultrasound could be performed to confirm that this is a cyst. Isodense masses and pyelonephritis cannot be excluded on non contrast imaging. No adrenal abnormalities. No urinary bladder abnormalities. No dilated bowel loops or focal ball bowel wall thickening. No free air, free fluid or inflammatory stranding. No hernia, mass or bulky lymphadenopathy. Appendix is normal. SI joint degenerative changes are present with partial fusion of the right SI joint. No vertebral body compression fracture. Sternum is intact. Facet joint degenerative changes are present. Patient has prominent degenerative changes in the midthoracic spine. No pathologic component seen. IMPRESSION: Nondisplaced fractures are present near the costochondral junctions of the right seventh and eighth ribs and the left seventh rib. No pulmonary contusion, pneumothorax or other acute findings in the chest. No acute or emergent abdomen or pelvis findings. Non-acute findings are detailed in the body of the report. CT abdomen and pelvis imaging shows no significant or suspicious finding. Conclusions/Impression: DELL likely due to hypovolemia -No NSAIDs -Continue IVF Hyponatremia -Continue IVF -Repeat BMP pending Hypokalemia -Replete potassium Hypomagnesemia -Replete prn HypoPO4 -Encourage nutrition Right kidney hyperdense mass suspicious for cyst -Renal US in the AM Anemia in chronic illness -Monitor H&H Thank you kindly for the consultation.
[2022-06-26 15:44] LABS: Potassium 2.3 mmol/L (3.5-5.1)
--- NOTE | 2022-06-26 15:44 | RAD REPORT ---
EXAM DESCRIPTION: USCarotid Artery Bilateral06/26/2022 2:56 pm CLINICAL HISTORY: syncope COMPARISON: None FINDINGS: The velocity of the right internal carotid artery equals 116 cm/sec. The right ICA/CCA rat io 1.7 The velocity of the left internal carotid artery equals 84 cm/sec. The left ICA/CCA ratio 1.1 Mild plaque is present within the carotid arteries. The vertebral arteries demonstrate antegrade flow IMPRESSION: Mild plaque within the carotid arteries without evidence of a hemodynamically significan t stenosis NASCET criteria used. Mild 0-49% stenosis Moderate 50-69% stenosis Severe 70-99% stenosis
[2022-06-26] MEDS: HYDROCODONE/APAP 5/325 MG TAB PO PRN (20:22)
[2022-06-26] MEDS ORDERED: SODIUM CHLORIDE 0.9% 10ML INJ IV PRN (23:04)
[2022-06-27 00:09] VITALS: BMI 26.6
[2022-06-27] MEDS: CEFEPIME 2 GM in NA CHLORIDE 0.9% 100 ML IV SCH ×2 (02:00→14:00)
[2022-06-27] MEDS ORDERED: CEFEPIME 2 GM VIAL ONE ×2 (02:21→15:11)
[2022-06-27] MEDS ORDERED: NA CHLORIDE 0.9% 100 ML IV ONE ×2 (02:23→15:11)
[2022-06-27] MEDS: NA CHLORIDE 0.9% 1,000 ML IV SCH ×2 (02:53→13:05)
[2022-06-27] MEDS: HYDROCODONE/APAP 5/325 MG TAB PO PRN ×2 (03:52→19:00)
[2022-06-27 06:02] LABS: Absolute Lymphocytes (CBC) 1.6 K/uL (0.7-4.9); Hematocrit 29.8 % (39.6-49.0); Lymphocytes % 13.9 % (15.3-44.8); MCV 106.5 fL (80-100); MPV 7.3 fL (7.6-11.3); RBC Red Blood Cell Count 2.79 M/uL (4.33-5.43)
[2022-06-27 07:04] LABS: Albumin 2.4 g/dL (3.4-5.0); Bilirubin Direct 0.4 mg/dL (0-0.2); Bilirubin Total 0.8 mg/dL (0.2-1.0); Protein, Total 6.5 g/dL (6.4-8.2)
[2022-06-27 07:30] LABS: Potassium 2.3 mmol/L (3.5-5.1)
[2022-06-27] MEDS ORDERED: POTASSIUM CL SA 10 MEQ TAB PO ONE ×2 (07:48→18:00)
[2022-06-27] MEDS: MULTIVITAMINS,THERAPEUT 1 TAB PO SCH (08:50)
[2022-06-27] MEDS: HEPARIN 5000 UNIT/ML 1 ML VIAL SQ SCH ×2 (08:51→21:39)
[2022-06-27] MEDS: ASPIRIN 81 MG CHEWABLE TABLET PO SCH (08:51)
[2022-06-27] MEDS ORDERED: PANTOPRAZOLE 40 MG INJ IVP SCH (09:00)
[2022-06-27] MEDS ORDERED: DRISDOL (VITAMIN D=ERGOCALCIFEROL) 50000 UNIT CAP PO SCH (09:00)
--- NOTE | 2022-06-27 09:58 | RAD REPORT ---
EXAM DESCRIPTION: US - Renal Ultrasound-Complete - 06/27/2022 5:24 am CLINICAL HISTORY: Renal mass COMPARISON: June 26, 2022 CT FINDINGS: The right kidney measures 9 cm with a normal echotexture. A 1.8 centimeter cyst anterior r ight kidney corresponds to the abnormality seen on CT. Given the high density on CT likely represents a proteinaceous cyst. It is benign The left kidney measures 10 cm with a normal echotexture. Hydronephrosis is not seen. No gross abnormality of bladder IMPRESSION: 1.8 centimeter proteinaceous cyst right kidney
--- NOTE | 2022-06-27 14:33 | EKG ---
Test Date: 2022-06-26 Test Time: 07:32:09 [employer] Engraving Supervisor: NEVAEH MEASUREMENT RESULTS: Intervals: Rate: 77 IN: 182 QRSD: 70 QT: 424 QTc: 479 [place]: P: 59 IN: 182 QRS: 47 T: 26 INTERPRETIVE STATEMENTS: Sinus rhythm with premature atrial complexes with aberrant conduction Low voltage QRS Nonspecific ST and T wave abnormality Abnormal ECG Compared to ECG 09/09/2018 04:56:36 Atrial premature complex(es) now present Aberrant conduction of supraventricular beat(s) now present Low QRS voltage now present ST (T wave) deviation now present Electronically Signed On 06-27-22 14:31:39 NECKTIE CENTRALIZING MACHINE OPERATOR by Tono Spencer
--- NOTE | 2022-06-27 17:49 | P.PN ---
Date of Service: 06/27/22 Subjective: No acute events overnight Still some slight dizziness with standing, not as often/frequent With some mild ache in the right lower back ROS: 10 point ROS as noted above, otherwise negative Physical exam GEN: Alert, oriented, NAD HEENT: Normal conjunctiva, sclera anicteric, PERRL CV: Regular rate and rhythm, no edema Pulm: Non-labored respirations on room air ABD: Soft, nontender, nondistended MSK: mild tenderness in R flank/lumbar region, on palpation of muscles, no skin changes Neuro: Normal speech, normal affect Problem List Syncope Hypotension Diarrhea DELL GERD Sepsis present on admission Leukocytosis Anemia chronic disease Hypophosphatemia, hypomagnesemia, hypokalemia Syncope Hypotension DELL suspect dehydration / decreased PO intake as main cause he continued to take anti-hypertensives as well improving with IVF nephrology consulted replacing electrolyte abnormalities check TSH renal ultrasound patient reportedly met sepsis criteria on admission - based on vitals / l eukocytosis, also with mild lactic acidosis; however no clear source of infection reactive / due to dehydration vs infection continue empiric antibiotics, blood cultures pending Anemia of chronic disease, workup pending, H/H stable VTE: hep sq Code: full Dispo: home, ~2 days Time Spent Managing Pts Care (In Minutes): 35
--- NOTE | 2022-06-27 21:46 | P.PN ---
Date of Service: 06/27/22 Vital Signs Temp Pulse Resp BP Pulse Ox 97.7 F 80 18 114/70 100 06/27/22 16:00 06/27/22 16:00 06/27/22 19:00 06/27/22 16:00 06/27/22 19:00 Medications Acetaminophen (Acetaminophen 325 Mg Tablet) 650 mg PO Q6H PRN PRN Reason: TEMP > 100' F Hydrocodone Bitart/Acetaminophen (Hydrocodone/Apap 5/325 Mg Tab) 1 tab PO Q6H PRN PRN Reason: Pain scale 5-7 (Moderate) Last Admin: 06/27/22 19:00 Dose: 1 tab Aspirin (Aspirin 81 Mg Chewable Tablet) 81 mg PO DAILY [facility] Last Admin: 06/27/22 08:51 Dose: 81 mg Ergocalciferol (Drisdol (Vitamin D=Ergocalciferol) 03601 Unit Cap) 50,000 unit PO Q7D@0900 [facility] Last Admin: 06/27/22 08:51 Dose: 50,000 unit Heparin Sodium (Porcine) (Heparin 5000 Unit/Ml 1 Ml Vial) 5,000 unit SQ Q12HR [facility] Last Admin: 06/27/22 08:51 Dose: 5,000 unit Cefepime HCl 2 gm/ Sodium (Chloride) 100 mls @ 200 mls/hr IV Q12H [facility]; Protocol Last Admin: 06/27/22 14:00 Dose: 100 mls Sodium Chloride (Ns 1000 Ml Ivbag) 1,000 mls @ 75 mls/hr IV .[id number] [facility] Last Admin: 06/27/22 13:05 Dose: 1,000 mls Ondansetron HCl (Ondansetron 4 Mg/2 Ml Vial) 4 mg IV Q6HP PRN PRN Reason: NAUSEA / VOMITING Pantoprazole Sodium (Pantoprazole 40mg Tablet) 40 mg PO DAILYAC [facility]; Protocol Sodium Chloride (Flush Normal Saline 10 Ml) 10 ml IV BID [facility] Last Admin: 06/27/22 08:51 Dose: 10 ml Sodium Chloride (Sodium Chloride 0.9% 10ml Inj) 10 ml IV UD PRN PRN Reason: Diluant Vitamin B Complex/Vit C/Folic Acid (Multivitamins,Therapeut 1 Tab) 1 tab PO DAILY [facility] Last Admin: 06/27/22 08:50 Dose: 1 tab Microbiology Results 06/26/22 09:44 Blood - Blood Aerobic Blood Culture - Preliminary No growth in 24 hours. 06/26/22 09:44 Blood - Blood Anaerobic Blood Culture - Final 06/26/22 10:00 Blood - Blood Aerobic Blood Culture - Preliminary No growth in 24 hours. 06/26/22 10:00 Blood - Blood Anaerobic Blood Culture - Preliminary No growth in 24 hours. 06/26/22 12:40 Stool Culture & Sensitivity - Preliminary 06/26/22 09:45 Clean Catch Urine Sandy Count - Preliminary No growth. 06/26/22 09:45 Clean Catch Urine - Preliminary No growth. 06/26/22 12:40 Stool Fecal Leukocyte Stain - Final Assessment/ Plan: Nephrology No dyspnea No chest pain Feeling better with good urine output No acute events overnight Vitals, medications, blood work and imaging reviewed in the chart. General: In no apparent distress, Oriented x3, Cooperative HEENT: Atraumatic Neck: Supple Respiratory: Clear to auscultation bilaterally Cardiovascular: No edema, Regular rate/rhythm Gastrointestinal: Soft and benign, Non-distended Musculoskeletal: No clubbing, No contractures Integumentary: No rashes, No cyanosis Neurological: Normal speech Laboratory Data (last 24 hrs) 06/26/22 10:00: Magnesium 1.5 L 06/26/22 10:00: Lipase 531 H 06/26/22 06:25: WBC 20.10 H*, Hgb 11.9 L, Hct 34.8 L, Plt Count 413 H 06/26/22 06:25: Sodium 132 L, Potassium 1.9 L*, BUN 23 H, Creatinine 2.89 H, Glucose 150 H Imagings Data: EXAM DESCRIPTION: RAD - Chest Single View - 06/26/2022 6:38 am CLINICAL HISTORY: Dizziness COMPARISON: Two view chest 09/09/2018 TECHNIQUE: AP portable chest image was obtained 06/26/2022 6:38 am . FINDINGS: Lungs are clear. Heart and vasculature are normal. No measurable pleural effusion and no pneumothorax. No acute bony abnormality seen. No acute aortic findings susp ected. No significant change from comparison study. IMPRESSION: No acute cardiopulmonary process. EXAM DESCRIPTION: CT - Chest Abd Pelvis Wo Con - 06/26/2022 7:22 am CLINICAL HISTORY: PAIN COMPARISON: No comparisons TECHNIQUE: Axial 5 millimeter thick images of the chest, abdomen and pelvis were obtained without IV contrast. Oral contrast was not administered. All CT scans are performed using dose optimization technique as appropriate and may include automated exposure control or mA/KV adjustment according to patient size. FINDINGS: No suspicious mass or infiltrate in the lung parenchyma. Two small less than 5 mm juxtapleural nodules are seen along the major fissure right lower lung field. These are not regarded as significant. No pneumothorax or pleural effusion. No chest wall mass or abnormal axillary lymphadenopathy seen. Mediastinal and hilar regions show no mass or lymphadenopathy. No significant cardiac finding. No displaced rib fractures are present. There are fractures evident near the costochondral junctions of the right seventh and eighth ribs and the left seventh rib. Air is present within the right axillary vein and brachiocephalic vein. This is probably related to IV access in the right upper extremity. The liver, spleen and pancreas show no acute findings for non contrast imaging. Liver attenuation relative to the spleen indicates a diffuse fatty infiltration. No biliary tree dilatation. There is slight variable density within the lumen of the gallbladder that could be stones or sludge. Wall thickening and edema of the gallbladder are not evident. No hydronephrosis of either kidney. No obstructing or nonobstructing calculi. In the anterior mid right kidney there is a homogeneous 18 mm round hyperdense mass. This is most likely a high protein content cyst. No comparison is available. Follow-up outpatient ultrasound could be performed to confirm that this is a cyst. Isodense masses and pyelonephritis cannot be excluded on non contrast imaging. No adrenal abnormalities. No urinary bladder abnormalities. No dilated bowel loops or focal ball bowel wall thickening. No free air, free fluid or inflammatory stranding. No hernia, mass or bulky lymphadenopathy. Appendix is normal. SI joint degenerative changes are present with partial fusion of the right SI joint. No vertebral body compression fracture. Sternum is intact. Facet joint degenerative changes are present. Patient has prominent degenerative changes in the midthoracic spine. No pathologic component seen. IMPRESSION: Nondisplaced fractures are present near the costochondral junctions of the right seventh and eighth ribs and the left seventh rib. No pulmonary contusion, pneumothorax or other acute findings in the chest. No acute or emergent abdomen or pelvis findings. Non-acute findings are detailed in the body of the report. CT abdomen and pelvis imaging shows no significant or suspicious finding. EXAM DESCRIPTION: US - Renal Ultrasound-Complete - 06/27/2022 5:24 am CLINICAL HISTORY: Renal mass COMPARISON: June 26, 2022 CT FINDINGS: The right kidney measures 9 cm with a normal echotexture. A 1.8 centimeter cyst anterior right kidney corresponds to the abnormality seen on CT. Given the high density on CT likely represents a proteinaceous cyst. It is benign The left kidney measures 10 cm with a normal echotexture. Hydronephrosis is not seen. No gross abnormality of bladder IMPRESSION: 1.8 centimeter proteinaceous cyst right kidney Conclusions/Impression: DELL likely due to hypovolemia CKD? -No NSAIDs -Continue IVF -Renal US reviewed Hyponatremia -Continue IVF Hypokalemia -Replete potassium X2 Hypomagnesemia -Replete prn HypoPO4 -Encourage nutrition Right kidney hyperdense mass suspicious for cyst Renal US demonstrates a 1.8cm proteinaceous right renal cyst Hypoalbuminemia -Recommend supplementation Anemia in chronic illness Macrocytosis -Monitor H&H -Check B12/Folic Acid
[2022-06-28] MEDS ORDERED: CEFEPIME 2 GM VIAL ONE ×2 (01:17→18:15)
[2022-06-28] MEDS ORDERED: NA CHLORIDE 0.9% 100 ML IV ONE ×2 (01:18→20:44)
[2022-06-28] MEDS: CEFEPIME 2 GM in NA CHLORIDE 0.9% 100 ML IV SCH ×2 (01:18→14:00)
[2022-06-28] MEDS: NA CHLORIDE 0.9% 1,000 ML IV SCH ×2 (01:18→18:02)
[2022-06-28] MEDS: HYDROCODONE/APAP 5/325 MG TAB PO PRN ×2 (01:26→21:22)
[2022-06-28] MEDS ORDERED: VANCOMYCIN 1.25 GM in NA CHLORIDE 0.9% 250 ML IVPB SCH (02:00)
[2022-06-28] MEDS: PANTOPRAZOLE 40MG TABLET PO SCH (05:37)
[2022-06-28 05:49] LABS: Absolute Lymphocytes (CBC) 1.3 K/uL (0.7-4.9); Hematocrit 27.8 % (39.6-49.0); Lymphocytes % 16.7 % (15.3-44.8); MCV 106.5 fL (80-100); MPV 7.1 fL (7.6-11.3); RBC Red Blood Cell Count 2.61 M/uL (4.33-5.43)
--- NOTE | 2022-06-28 06:47 | ECHO ---
HEIGHT: 5 ft 8 in WEIGHT: 175 lb 0.047 oz DATE OF STUDY: 06/27/[address]: Rosales Noriega 2-DIMENSIONAL: YES M.MODE: YES DOPPLER: YES COLOR FLOW: YES TDS: PORTABLE: DEFINITY: BUBBLE STUDY: DIAGNOSIS: SYNCOPE CARDIAC HISTORY: CATHERIZATION: SURGERY: PROSTHETIC VALVE: PACEMAKER: MEASUREMENTS (cm) DIASTOLIC (NORMALS) SYSTOLIC (NORMALS) IVSd 0.9 (0.6-1.2) LA Diam 3.3 (1.9-4.0) LVEF 78% LVIDd 3.7 (3.5-5.7) LVIDs 2.0 (2.0-3.5) %FS 46% LVPWd 0.9 (0.6-1.2) Ao Diam 2.9 (2.0-3.7) 2 DIMENSIONAL ASSESSMENT: RIGHT ATRIUM: NORMAL LEFT ATRIUM: NORMAL RIGHT VENTRICLE: NORMAL LEFT VENTRICLE: HYPERDYNAMIC LEFT VENTRICLE TRICUSPID VALVE: NORMAL MITRAL VALVE: NORMAL PULMONIC VALVE: NORMAL AORTIC VALVE: NORMAL PERICARDIAL EFFUSION: NONE AORTIC ROOT: NORMAL LEFT VENTRICULAR WALL MOTION: HYPERDYNAMIC LEFT VENTRICLE (NORMAL WALL MOTION). POSSIBLE DEHYDRATION DOPPLER/COLOR FLOW: NORMAL COMMENTS: 1. NORMAL LEFT VENTRICULAR EJECTION FRACTION GREATER THAN 65% (HYPERDYNAMIC) WITH NORMAL WALL MOTION (POSSIBLE DEHYDRATION). 2. NORMAL DIASTOLIC FUNCTION TECHNOLOGIST: MAYNOR YANES
[2022-06-28 06:52] LABS: Albumin 2.4 g/dL (3.4-5.0); Bilirubin Total 0.7 mg/dL (0.2-1.0); Folic Acid, (Folate) 1.9 ng/mL (3.1-17.5); Magnesium 1.8 mg/dL (1.6-2.4); Protein, Total 6.6 g/dL (6.4-8.2); Thyroid Stimulating Hormone 1.22 uIU/mL (0.358-3.740); Uric Acid 6.7 mg/dL (3.5-7.2)
--- NOTE | 2022-06-28 07:31 | P.PN ---
Date of Service: 06/28/22 Subjective: no acute events overnight feeling better electrolytes improving renal function improving slowly no new/worsening symptoms ROS: 10 point ROS as noted above, otherwise negative Physical exam GEN: Alert, oriented, NAD HEENT: Normal conjunctiva, sclera anicteric, PERRL CV: Regular rate and rhythm, no edema Pulm: Non-labored respirations on room air ABD: Soft, nontender, nondistended Neuro: Normal speech, normal affect Problem List Syncope Hypotension Diarrhea DELL GERD Sepsis ruled out Leukocytosis Anemia chronic disease Hypophosphatemia, hypomagnesemia, hypokalemia Syncope Hypotension DELL suspect dehydration / decreased PO intake as main cause he continued to take anti-hypertensives as well improving with IVF and PO intake nephrology consulted replacing electrolyte abnormalities renal ultrasound patient reportedly met sepsis criteria on admission - based on vitals / leukocytosis, also with mild lactic acidosis; however no clear source of infection reactive / due to dehydration; less likely due to infection cultures negative, dc cefepime Anemia of chronic disease folate deficiency VTE: hep sq Code: full Dispo: home, likely tomorrow Time Spent Managing Pts Care (In Minutes): 25
[2022-06-28] MEDS: HEPARIN 5000 UNIT/ML 1 ML VIAL SQ SCH ×2 (08:20→21:22)
[2022-06-28] MEDS: ASPIRIN 81 MG CHEWABLE TABLET PO SCH (08:20)
[2022-06-28] MEDS: MULTIVITAMINS,THERAPEUT 1 TAB PO SCH (08:20)
[2022-06-28] MEDS ORDERED: POTASSIUM CL SA 10 MEQ TAB PO ONE ×2 (09:59→21:28)
[2022-06-28] MEDS: ENSURE ENLIVE 237 ML CAN PO SCH ×3 (11:19→21:00)
[2022-06-28] MEDS ORDERED: ENSURE ENLIVE 237 ML CAN PO SCH (21:00)
[2022-06-28] MEDS ORDERED: CEFEPIME 2 GM in NA CHLORIDE 0.9% 100 ML IV SCH (21:00)
--- NOTE | 2022-06-28 21:36 | P.PN ---
Date of Service: 06/28/22 Vital Signs Temp Pulse Resp BP Pulse Ox 97.2 F 95 H 18 121/73 100 06/28/22 20:00 06/28/22 20:00 06/28/22 21:22 06/28/22 20:00 06/28/22 21:22 Medications Acetaminophen (Acetaminophen 325 Mg Tablet) 650 mg PO Q6H PRN PRN Reason: TEMP > 100' F Hydrocodone Bitart/Acetaminophen (Hydrocodone/Apap 5/325 Mg Tab) 1 tab PO Q6H PRN PRN Reason: Pain scale 5-7 (Moderate) Last Admin: 06/28/22 21:22 Dose: 1 tab Aspirin (Aspirin 81 Mg Chewable Tablet) 81 mg PO DAILY [facility] Last Admin: 06/28/22 08:20 Dose: 81 mg Ergocalciferol (Drisdol (Vitamin D=Ergocalciferol) 58499 Unit Cap) 50,000 unit PO Q7D@0900 [facility] Last Admin: 06/27/22 08:51 Dose: 50,000 unit Heparin Sodium (Porcine) (Heparin 5000 Unit/Ml 1 Ml Vial) 5,000 unit SQ Q12HR [facility] Last Admin: 06/28/22 21:22 Dose: 5,000 unit Sodium Chloride (Ns 1000 Ml Ivbag) 1,000 mls @ 75 mls/hr IV .[id number] [facility] Last Admin: 06/28/22 18:02 Dose: 1,000 mls Cefepime HCl 2 gm/ Sodium (Chloride) 100 mls @ 200 mls/hr IV Q12HR [facility]; Protocol Last Admin: 06/28/22 21:15 Dose: 100 mls Nutritional Formula (Ensure Enlive 237 Ml Can) 237 ml PO BID [facility] Last Admin: 06/28/22 21:00 Dose: Not Given Ondansetron HCl (Ondansetron 4 Mg/2 Ml Vial) 4 mg IV Q6HP PRN PRN Reason: NAUSEA / VOMITING Pantoprazole Sodium ([facility] 40mg Tablet) [facility] Last Admin: 06/28/22 05:37 Dose: 40 mg Potassium Chloride (Potassium Cl Sa 10 Meq Tab) 40 meq PO 1X ONE Stop: 06/28/22 21:29 Sodium Chloride (Flush Normal Saline 10 Ml) 10 ml IV BID [facility] Last Admin: 06/28/22 21:22 Dose: 10 ml Sodium Chloride (Sodium Chloride 0.9% 10ml Inj) 10 ml IV UD PRN PRN Reason: Diluant Vitamin B Complex/Vit C/Folic Acid (Multivitamins,Therapeut 1 Tab) 1 tab PO DAILY [facility] Last Admin: 06/28/22 08:20 Dose: 1 tab Microbiology Results 06/26/22 12:40 Stool Culture & Sensitivity - Final 06/26/22 09:45 Clean Catch Urine [place] Count - Final <10,000 CFU/ML. 06/26/22 09:45 Clean Catch Urine - Final MIXED JAGUAR. 06/26/22 09:44 Blood - Blood Aerobic Blood Culture - Preliminary No growth in 24 hours. 06/26/22 09:44 Blood - Blood Anaerobic Blood Culture - Final 06/26/22 10:00 Blood - Blood Aerobic Blood Culture - Preliminary No growth in 24 hours. 06/26/22 10:00 Blood - Blood Anaerobic Blood Culture - Preliminary No growth in 24 hours. 06/26/22 12:40 Stool Fecal Leukocyte Stain - Final Assessment/ Plan: Nephrology No dyspnea No chest pain Feeling better with good urine output No acute events overnight Vitals, medications, blood work and imaging reviewed in the chart. General: In no apparent distress, Oriented x3, Cooperative HEENT: Atraumatic Neck: Supple Respiratory: Clear to auscultation bilaterally Cardiovascular: No edema, Regular rate/rhythm Gastrointestinal: Soft and benign, Non-distended Musculoskeletal: No clubbing, No contractures Integumentary: No rashes, No cyanosis Neurological: Normal speech Laboratory Data (last 24 hrs) 06/26/22 10:00: Magnesium 1.5 L 06/26/22 10:00: Lipase 531 H 06/26/22 06:25: WBC 20.10 H*, Hgb 11.9 L, Hct 34.8 L, Plt Count 413 H 06/26/22 06:25: Sodium 132 L, Potassium 1.9 L*, BUN 23 H, Creatinine 2.89 H, Glucose 150 H Imagings Data: EXAM DESCRIPTION: RAD - Chest Single View - 06/26/2022 6:38 am CLINICAL HISTORY: Dizziness COMPARISON: Two view chest 09/09/2018 TECHNIQUE: AP portable chest image was obtained 06/26/2022 6:38 am . FINDINGS: Lungs are clear. Heart and vasculature are normal. No measurable pleural effusion and no pneumothorax. No acute bony abnormality seen. No acute aortic findings suspected. No significant change from comparison study. IMPRESSION: No acute cardiopulmonary process. EXAM DESCRIPTION: CT - Chest Abd Pelvis Wo Tanvir - 06/26/2022 7:22 am CLINICAL HISTORY: PAIN COMPARISON: No comparisons TECHNIQUE: Axial 5 millimeter thick images of the chest, abdomen and pelvis were obtained without IV contrast. Oral contrast was not administered. All CT scans are performed using dose optimization technique as appropriate and may include automated exposure control or mA/KV adjustment according to patient size. FINDINGS: No suspicious mass or infiltrate in the lung parenchyma. Two small less than 5 mm juxtapleural nodules are seen along the major fissure right lower lung field. These are not regarded as significant. No pneumothorax or pleural effusion. No chest wall mass or abnormal axillary lymphadenopathy seen. Mediastinal and hilar regions show no mass or lymphadenopathy. No significant cardiac finding. No displaced rib fractures are present. There are fractures evident near the costochondral junctions of the right seventh and eighth ribs and the left seventh rib. Air is present within the right axillary vein and brachiocephalic vein. This is probably related to IV access in the right upper extremity. The liver, spleen and pancreas show no acute findings for non contrast imaging. Liver attenuation relative to the spleen indicates a diffuse fatty infiltration. No biliary tree dilatation. There is slight variable density within the lumen of the gallbladder that could be stones or sludge. Wall thickening and edema of the gallbladder are not evident. No hydronephrosis of either kidney. No obstructing or nonobstructing calculi. In the anterior mid right kidney there is a homogeneous 18 mm round hyperdense mass. This is most likely a high protein content cyst. No comparison is available. Follow-up outpatient ultrasound could be performed to confirm that this is a cyst. Isodense masses and pyelonephritis cannot be excluded on non contrast imaging. No adrenal abnormalities. No urinary bladder abnormalities. No dilated bowel loops or focal ball bowel wall thickening. No free air, free fluid or inflammatory stranding. No hernia, mass or bulky lymphadenopathy. Appendix is normal. SI joint degenerative changes are present with partial fusion of the right SI joint. No vertebral body compression fracture. Sternum is intact. Facet joint degenerative changes are present. Patient has prominent degenerative changes in the midthoracic spine. No pathologic component seen. IMPRESSION: Nondisplaced fractures are present near the costochondral junctions of the right seventh and eighth ribs and the left seventh rib. No pulmonary contusion, pneumothorax or other acute findings in the chest. No acute or emergent abdomen or pelvis findings. Non-acute findings are detailed in the body of the report. CT abdomen and pelvis imaging shows no significant or suspicious finding. EXAM DESCRIPTION: US - Renal Ultrasound-Complete - 06/27/2022 5:24 am CLINICAL HISTORY: Renal mass COMPARISON: June 26, 2022 CT FINDINGS: The right kidney measures 9 cm with a normal echotexture. A 1.8 centimeter cyst anterior right kidney corresponds to the abnormality seen on CT. Given the high density on CT likely represents a proteinaceous cyst. It is benign The left kidney measures 10 cm with a normal echotexture. Hydronephrosis is not seen. No gross abnormality of bladder IMPRESSION: 1.8 centimeter proteinaceous cyst right kidney Conclusions/Impression: DELL likely due to hypovolemia CKD? -No NSAIDs -Continue IVF -Renal US reviewed Hyponatremia -Continue IVF Hypokalemia -Replete potassium X2 Hypomagnesemia -Replete prn HypoPO4 -Encourage nutrition Right kidney hyperdense mass suspicious for cyst Renal US demonstrates a 1.8cm proteinaceous right renal cyst Hypoalbuminemia -Recommend supplementation Anemia in chronic illness Folic Acid Deficiency -Monitor H&H -Continue MVI Case reviewed with Dr. Stoddard
[2022-06-29 01:30] VITALS: O2SAT 99
[2022-06-29 05:19] LABS: Potassium 3.1 mmol/L (3.5-5.1)
[2022-06-29 05:20] LABS: Magnesium 1.4 mg/dL (1.6-2.4)
[2022-06-29] MEDS ORDERED: Magnesium Sulfate 2gm IVPB 2 G/50 ML BAG IV ONE (06:00)
[2022-06-29] MEDS: PANTOPRAZOLE 40MG TABLET PO SCH (06:18)
[2022-06-29] MEDS: NA CHLORIDE 0.9% 1,000 ML IV SCH (06:18)
[2022-06-29] MEDS: ENSURE ENLIVE 237 ML CAN PO SCH (09:00)
[2022-06-29] MEDS ORDERED: POTASSIUM CL SA 10 MEQ TAB PO ONE (09:00)
[2022-06-29] MEDS: HEPARIN 5000 UNIT/ML 1 ML VIAL SQ SCH (09:52)
[2022-06-29] MEDS: MULTIVITAMINS,THERAPEUT 1 TAB PO SCH (09:52)
[2022-06-29] MEDS: ASPIRIN 81 MG CHEWABLE TABLET PO SCH (09:52)
[2022-06-29 12:28] VITALS: BP 112/71; TEMP 97.2
--- NOTE | 2022-06-29 21:34 | P.PN ---
Date of Service: 06/29/22 Vital Signs Temp Pulse Resp BP Pulse Ox 97.2 F 79 18 112/71 100 06/29/22 12:00 06/29/22 12:00 06/29/22 12:00 06/29/22 12:00 06/29/22 12:00 Microbiology Results 06/26/22 12:40 Stool Culture & Sensitivity - Final 06/26/22 09:45 Clean Catch Urine [place] Count - Final <10,000 CFU/ML. 06/26/22 09:45 Clean Catch Urine - Final MIXED JAGUAR. 06/26/22 09:44 Blood - Blood Aerobic Blood Culture - Preliminary No growth in 24 hours. 06/26/22 09:44 Blood - Blood Anaerobic Blood Culture - Final 06/26/22 10:00 Blood - Blood Aerobic Blood Culture - Preliminary No growth in 24 hours. 06/26/22 10:00 Blood - Blood Anaerobic Blood Culture - Preliminary No growth in 24 hours. 06/26/22 12:40 Stool Fecal Leukocyte Stain - Final Assessment/ Plan: Nephrology No dyspnea No chest pain Feeling better with good urine output No acute events overnight Vitals, medications, blood work and imaging reviewed in the chart. General: In no apparent distress, Oriented x3, Cooperative HEENT: Atraumatic Neck: Supple Respiratory: Clear to auscultation bilaterally Cardiovascular: No edema, Regular rate/rhythm Gastrointestinal: Soft and benign, Non-distended Musculoskeletal: No clubbing, No contractures Integumentary: No rashes, No cyanosis Neurological: Normal speech Laboratory Data (last 24 hrs) 06/26/22 10:00: Magnesium 1.5 L 06/26/22 10:00: Lipase 531 H 06/26/22 06:25: WBC 20.10 H*, Hgb 11.9 L, Hct 34.8 L, Plt Count 413 H 06/26/22 06:25: Sodium 132 L, Potassium 1.9 L*, BUN 23 H, Creatinine 2.89 H, Glucose 150 H Imagings Data: EXAM DESCRIPTION: RAD - Chest Single View - 06/26/2022 6:38 am CLINICAL HISTORY: Dizziness COMPARISON: Two view chest 09/09/2018 TECHNIQUE: AP portable chest image was obtained 06/26/2022 6:38 am . FINDINGS: Lungs are clear. Heart and vasculature are normal. No measurable pleural effusion and no pneumothorax. No acute bony abnormality seen. No acute aortic findings suspected. No significant change from comparison study. IMPRESSION: No acute cardiopulmonary process. EXAM DESCRIPTION: CT - Chest Abd Pelvis Wo Con - 06/26/2022 7:22 am CLINICAL HISTORY: PAIN COMPARISON: No comparisons TECHNIQUE: Axial 5 millimeter thick images of the chest, abdomen and pelvis were obtained without IV contrast. Oral contrast was not administered. All CT scans are performed using dose optimization technique as appropriate and may include automated exposure control or mA/KV adjustment according to patient size. FINDINGS: No suspicious mass or infiltrate in the lung parenchyma. Two small less than 5 mm juxtapleural nodules are seen along the major fissure right lower lung field. These are not regarded as significant. No pneumothorax or pleural effusion. No chest wall mass or abnormal axillary lymphadenopathy seen. Mediastinal and hilar regions show no mass or lymphadenopathy. No significant cardiac finding. No displaced rib fractures are present. There are fractures evident near the costochondral junctions of the right seventh and eighth ribs and the left seventh rib. Air is present within the right axillary vein and brachiocephalic vein. This is probably related to IV access in the right upper extremity. The liver, spleen and pancreas show no acute findings for non contrast imaging. Liver attenuation relative to the spleen indicates a diffuse fatty infiltration. No biliary tree dilatation. There is slight variable density within the lumen of the gallbladder that could be stones or sludge. Wall thickening and edema of the gallbladder are not evident. No hydronephrosis of either kidney. No obstructing or nonobstructing calculi. In the anterior mid right kidney there is a homogeneous 18 mm round hyperdense mass. This is most likely a high protein content cyst. No comparison is available. Follow-up outpatient ultrasound could be performed to confirm that this is a cyst. Isodense masses and pyelonephritis cannot be excluded on non contrast imaging. No adrenal abnormalities. No urinary bladder abnormalities. No dilated bowel loops or focal ball bowel wall thickening. No free air, free fluid or inflammatory stranding. No hernia, mass or bulky lymphadenopathy. Appendix is normal. SI joint degenerative changes are present with partial fusion of the right SI joint. No vertebral body compression fracture. Sternum is intact. Facet joint degenerative changes are present. Patient has prominent degenerative changes in the midthoracic spine. No pathologic component seen. IMPRESSION: Nondisplaced fractures are present near the costochondral junctions of the right seventh and eighth ribs and the left seventh rib. No pulmonary contusion, pneumothorax or other acute findings in the chest. No acute or emergent abdomen or pelvis findings. Non-acute findings are detailed in the body of the report. CT abdomen and pelvis imaging shows no significant or suspicious finding. EXAM DESCRIPTION: US - Renal Ultrasound-Complete - 06/27/2022 5:24 am CLINICAL HISTORY: Renal mass COMPARISON: June 26, 2022 CT FINDINGS: The right kidney measures 9 cm with a normal echotexture. A 1.8 centimeter cyst anterior right kidney corresponds to the abnormality seen on CT. Given the high density on CT likely represents a proteinaceous cyst. It is benign The left kidney measures 10 cm with a normal echotexture. Hydronephrosis is not seen. No gross abnormality of bladder IMPRESSION: 1.8 centimeter proteinaceous cyst right kidney Conclusions/Impression: DELL likely due to hypovolemia CKD? -No NSAIDs -Continue IVF -Renal US reviewed Hyponatremia -Continue IVF Hypokalemia -Replete potassium as ordered Hypomagnesemia -Replete as ordered HypoPO4 -Encourage nutrition Right kidney hyperdense mass suspicious for cyst Renal US demonstrates a 1.8cm proteinaceous right renal cyst Hypoalbuminemia -Recommend supplementation Anemia in chronic illness Folic Acid Deficiency -Monitor H&H -Continue MVI Case reviewed with Dr. Stoddard
--- NOTE | 2022-06-29 22:32 | P.DS ---
Admission Date: 06/26/22 Discharge Date: 06/29/22 Disposition: ROUTINE DISCHARGE Discharge Condition: GOOD Reason for Admission: Syncope Consultations: Cardiology - Dr. Spencer Nephrology - Dr. De Leon Brief History of Present Illness: 57-year-old male with a past medical history significant for hypertension, GERD who presents with complaint of dizziness that has been ongoing for the past 3 weeks. Patient reported that he feels dizzy whenever he tries to get up and symptoms have become worse over time. Patient indicated that he has been having frequent falls due to dizziness and in one of the fall he hit his head and found himself on the floor. Patient reported that he has been having some near syncopal episodes and had to be holding unto items to prevent falls. Patient reported associated signs and symptoms of lightheadedness and diarrhea. Patient denies any other signs or symptoms. Symptoms are aggravated or relieved by nothing. Patient decided to present to the hospital due to worsening symptoms. Hospital Course: Problem List Near-Syncope Hypotension DELL, prerenal GERD Sepsis ruled out Leukocytosis Anemia chronic disease Hypophosphatemia, hypomagnesemia, hypokalemia Patient presented with dizziness, falls, not feeling well. He was found to be hypotensive, dehydrated, with DELL and electrolyte abnormalities - hypokalemia, hypomagnesemia, hypophosphatemia. Symptoms and labs improved with IV hydration and increased oral intake. Patient was encouraged to increase oral intake, he was able to tolerate ensure. Initially concerned for sepsis, due to lab work, however no evidence of infection and labs consistent with reactive to his malnourished and dehydrated state. Antibiotics were discontinued and he continued to improve, remained afebrile. He was also found to have microcytic anemia, which workup revealed wafoalte deficiency - secondary to decreased oral intake. He is to continue on daily supplementation. Recommend stopping blood pressure medication until follow up with Nephrology. Discharged with a few days of potassium 20meq replacement. Follow up: Dr. De Leon, Nephrology, to have repeat bloodwork in ~1 week Vital Signs/Physical Exam: Temp Pulse Resp BP Pulse Ox 97.2 F 79 18 112/71 100 06/29/22 12:00 06/29/22 12:00 06/29/22 12:00 06/29/22 12:00 06/29/22 12:00 Physical exam GEN: Alert, oriented, NAD HEENT: Normal conjunctiva, sclera anicteric, PERRL CV: Regular rate and rhythm, no edema Pulm: Non-labored respirations on room air ABD: Soft, nontender, nondistended Neuro: Normal speech, normal affect Laboratory Data at Discharge: WBC 7.70 K/uL (4.3-10.9) 06/28/22 05:34 Hgb 9.4 g/dL (13.6-17.9) L 06/28/22 05:34 Hct 27.8 % (39.6-49.0) L 06/28/22 05:34 Plt Count 245 K/uL (152-406) 06/28/22 05:34 PT 15.8 SECONDS (9.5-12.5) H 06/26/22 14:01 INR 1.44 06/26/22 14:01 Sodium 140 mmol/L (136-145) 06/29/22 04:38 Potassium 3.7 mmol/L (3.5-5.1) D 06/29/22 12:52 BUN 15 mg/dL (7-18) 06/29/22 04:38 Creatinine 1.53 mg/dL (0.70-1.30) H 06/29/22 04:38 Glucose 77 mg/dL (74-106) 06/29/22 04:38 Uric Acid 6.7 mg/dL (3.5-7.2) 06/28/22 05:34 Phosphorus 2.0 mg/dL (2.5-4.9) L 06/28/22 05:34 Magnesium 2.0 mg/dL (1.6-2.4) 06/29/22 12:52 Total Bilirubin 0.7 mg/dL (0.2-1.0) 06/28/22 05:34 AST 44 U/L (15-37) H 06/28/22 05:34 ALT 25 U/L (16-61) 06/28/22 05:34 Alkaline Phosphatase 92 U/L (45-117) 06/28/22 05:34 Triglycerides 166 mg/dL (<150) H 06/26/22 14:01 Cholesterol 122 mg/dL (<200) 06/26/22 14:01 HDL Cholesterol 21 mg/dL (40-60) L 06/26/22 14:01 Cholesterol/HDL Ratio 5.81 06/26/22 14:01 Lipase 458 U/L (73-393) H 06/27/22 05:43 Home Medications: Ensure Enlive 237 ml PO BID can 06/29/22 Folic Acid 1 mg PO DAILY 30 Days #30 tab 06/29/22 Potassium Chloride [Klor-Con] 20 meq PO DAILY 5 Days #5 packet 06/29/22 New Medications: Folic Acid 1 mg PO DAILY 30 Days #30 tab Potassium Chloride [Klor-Con] 20 meq PO DAILY 5 Days #5 packet Physician Discharge Instructions: Patient presented with dizziness, falls, not feeling well. He was found to be hypotensive, dehydrated, with DELL and electrolyte abnormalities - hypokalemia, hypomagnesemia, hypophosphatemia. Symptoms and labs improved with IV hydration and increased oral intake. Patient was encouraged to increase oral intake, he was able to tolerate ensure. Initially concerned for sepsis, due to lab work, however no evidence of infection and labs consistent with reactive to his malnourished and dehydrated state. Antibiotics were discontinued and he continued to improve, remained afebrile. He was also found to have microcytic anemia, which workup revealed wafoalte deficiency - secondary to decreased oral intake. He is to continue on daily supplementation. Recommend stopping blood pressure medication until follow up with Nephrology. Discharged with a few days of potassium 20meq replacement. Follow up: Dr. De Leon, Nephrology, to have repeat bloodwork in ~1 week Followup: Nany Arellano DO, DO [Primary Care Provider] - Time spent managing pt's care (in minutes): 45
[2022-07-02 05:54] LABS: Albumin, (SPE) 2.9 g/dL (3.8-4.8); Alpha-1-Globulins 0.5 g/dL (0.2-0.3); Alpha-2-Globulins 0.8 g/dL (0.5-0.9); Gamma Globulins 1.3 g/dL (0.8-1.7); INTERPRETATION REPORT
== END 2022-06-29 14:18 | disposition home or self-care (01) | DRG 683 ==
LOC: ER 05:46 → ERHOLD 12:46 → 2ND 18:13
PROVIDERS: ADMIT Internal Medicine; ATTEND Hospitalist
DX: N17.9 Acute kidney failure, unspecified (principal); E87.1 Hypo-osmolality and hyponatremia; K21.9 Gastro-esophageal reflux disease without esophagitis; I10 Essential (primary) hypertension; E87.6 Hypokalemia; I95.9 Hypotension, unspecified; E86.0 Dehydration; E86.1 Hypovolemia; D52.9 Folate deficiency anemia, unspecified; E83.42 Hypomagnesemia; N28.1 Cyst of kidney, acquired; E83.39 Other disorders of phosphorus metabolism; D63.8 Anemia in other chronic diseases classified elsewhere; R55 Syncope and collapse; Z63.5 Disruption of family by separation and divorce; Z28.310 Unvaccinated for COVID-19; Z20.822 Contact with and (suspected) exposure to COVID-19
CPT/HCPCS: 0240U; 36415; 70450; 71045; 71250; 72125; 74176; 76770; 80048; 80053; 80061; 80076; 81003; 82533; 82550; 82607; 82746; 83036; 83605; 83690; 83735; 83880; 84100; 84132; 84145; 84165; 84443; 84484; 84550; 85025; 85610; 86038; 86160; 86850; 86900; 86901; 87040; 87045; 87046; 87086; 87088; 87177; 87209; 89055; 93005; 93306; 93880; 96361; 96374; 96375; 97161; 97530; 99285; C9113; J0692; J1644; J2543; J3370; J3475; J3480; J7030; J7040

== ENCOUNTER 2022-07-10 10:50 | Inpatient (IN) | payer SELFPAY ==
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
[2022-07-10 11:36] LABS: Hematocrit 26.8 % (39.6-49.0); Lymphocytes % 14.6 % (15.3-44.8); MCV 108.3 fL (80-100); MPV 8.2 fL (7.6-11.3); RBC Red Blood Cell Count 2.48 M/uL (4.33-5.43)
[2022-07-10] MEDS ORDERED: NA CHLORIDE 0.9% 1,000 ML ONE (11:38)
[2022-07-10 12:03] LABS: Albumin 2.6 g/dL (3.4-5.0); Bilirubin Total 0.9 mg/dL (0.2-1.0); Potassium 3.9 mmol/L (3.5-5.1); Thyroid Stimulating Hormone 2.15 uIU/mL (0.358-3.740)
[2022-07-10 12:05] LABS: Magnesium 1.2 mg/dL (1.6-2.4)
--- NOTE | 2022-07-10 12:17 | RAD REPORT ---
EXAM DESCRIPTION: RAD - Chest Single View - 07/10/2022 12:09 pm CLINICAL HISTORY: weakness COMPARISON: Chest Single View dated 06/26/2022; Chest Pa And Lat (2 Views) dated 09/09/2018; Chest Sing le View dated 08/04/2017 FINDINGS: Lines: None. Lungs: No evidence of edema or pneumonia. Pleural: No significant pleural effusions or pneumothorax. Cardiac: The heart size is within normal limits. Mediastinum: Within normal limits. Bones: No acute fractures. Other: None IMPRESSION: No acute cardiopulmonary disease.
--- NOTE | 2022-07-10 12:27 | ER ---
Nurse's Notes [facility] Name: Baldemar Garcia Age: 57 yrs Sex: Male : 1965 Arrival Date: 07/10/2022 Time: 10:55 Bed 15 Private MD: Nany Arlelano H Diagnosis: Weakness;Hypomagnesemia;Lactic Acidosis Presentation: 07/10 11:08 Chief complaint: Patient states: I was here a couple weeks ago with low blood pressure 5 and they told me my potassium and magnesium was really low also and I am having the exact same symptoms like my electrolytes are off again. Coronavirus screen: Vaccine status: Patient reports being unvaccinated. Client denies travel out of the [place] in the last 14 days. Ebola Screen: Patient negative for fever greater than or equal to 101.5 degrees Fahrenheit, and additional compatible Ebola Virus Disease symptoms Patient denies exposure to infectious person. Patient denies travel to an Ebola-affected area in the 21 days before illness onset. No acute neurological deficit is noted. Initial Sepsis Screen: Does the patient meet any 2 criteria? No. Patient's initial sepsis screen is negative. Does the patient have a suspected source of infection? No. Patient's initial sepsis screen is negative. Risk Assessment: Do you want to hurt yourself or someone else? Patient reports no desire to harm self or others. Onset of symptoms was June 2022. 11:08 Method Of Arrival: Wheelchair jh5 11:08 Acuity: OLEG 3 jh5 Triage Assessment: 11:11 General: Appears in no apparent distress. uncomfortable, slender, Behavior is calm, jh5 cooperative, appropriate for age. Pain: Denies pain. Neuro: Reports dizziness, weakness. 15:46 The onset of the patients symptoms was July 10, 2022 at 08:00. bp Historical: - PMHx: 11:11 GERD; Hypertension; jh5 - PSHx: 11:11 bilateral knee surgery; jh5 - Immunization history:: Adult Immunizations up to date. - Social history:: Smoking status: Patient denies any tobacco usage or history of. - Family history:: not pertinent. Screenin:15 [facility] ED Fall Risk Assessment (Adult) History of falling in the last 3 months, bp including since admission No falls in past 3 months (0 pts). Abuse screen: Denies threats or abuse. Denies injuries from another. Nutritional screening: No deficits noted. Tuberculosis screening: No symptoms or risk factors identified. Assessment: 11:15 VAN Scoring: Arm Drift: Patients demonstrates NO arm weakness. Patient is VAN Negative. bp The patient has not been NPO before screening. The patient is alert, and able to follow commands. The patient exhibits slurred or garbled speech. The patient is not exhibiting difficulty speaking. The patient does not exhibit difficulty understanding words. The patient is able to swallow own secretions with no drooling or need for suction. Patient tolerated one teaspoon of water. No drooling, immediate coughing, gurgling, or clearing of the throat was noted. The patient tolerated 90mL of water. No drooling, immediate coughing, gurgling, or clearing of the throat was noted. The patient passed the bedside swallow screening. Oral medications may be given as ordered. Contact Physician for further diet orders. Provider notified of bedside swallow screening results: Bob Hernandez MD. TNKase (Tenecteplase) Screening: Contraindications: Rapidly improving condition or minor deficit: Yes. General: SEE TRIAGE NOTE. 11:45 Reassessment: Patient appears in no apparent distress at this time. Patient and/or db family updated on plan of care and expected duration. Pain level reassessed. Patient is alert, oriented x 3, equal unlabored respirations, skin warm/dry/pink. CALLED LAB FOR PHOS ADD ON. LAB STATES WILL ADD ON. 12:15 Reassessment: No changes from previously documented assessment. Patient and/or family bp updated on plan of care and expected duration. Pain level reassessed. 13:30 Reassessment: ADMIT INITIATED. bp 15:30 Reassessment: PT TO MRI. bp 15:44 Reassessment: ADMIT ON HOLD, PT IN MRI. bp Vital Signs: 11:08 BP 158 / 99; Pulse 106; Resp 16; Temp 98.8; Pulse Ox 100% ; Weight 89.81 kg; Height 5 jh5 ft. 6 in. (167.64 cm); Pain 0/10; 12:15 BP 153 / 90; Pulse 96; Resp 17; Pulse Ox 100% ; bp 13:30 BP 149 / 91; Pulse 91; Resp 20; Pulse Ox 100% ; bp 15:30 BP 141 / 90; Pulse 76; Resp 19; Pulse Ox 100% ; bp 11:08 Body Mass Index 31.96 (89.81 kg, 167.64 cm) jh5 NIH Stroke Scale Scores: 11:15 NIHSS Score: 0 bp ED Course: 10:55 Patient arrived in ED. mr 10:55 Nany Arellano DO is Private Physician. mr 11:01 Lazaro Solitario, JEFFREY is Primary Nurse. bp 11:01 Bob Hernandez MD is Attending Physician. rt 11:11 Triage completed. jh5 11:11 Arm band placed on right wrist. jh5 11:15 Patient has correct armband on for positive identification. Bed in low position. Call bp light in reach. Side rails up X2. Client placed on continuous cardiac and pulse oximetry monitoring. NIBP monitoring applied. 11:21 Inserted saline lock: 20 gauge in right forearm, using aseptic technique. Blood bp collected. 12:11 Chest Single View XRAY In Process Unspecified. EDMS 12:25 Aristeo Neves MD is Hospitalizing Provider. rt 15:46 No provider procedures requiring assistance completed. Patient admitted, IV remains in bp place. Administered Medications: 11:30 Drug: NS 0.9% 1000 ml Route: IV; Rate: 1 bolus; Site: right forearm; bp 14:16 Follow up: Response: No adverse reaction; IV Status: Completed infusion; IV Intake: db 1000ml 12:30 Drug: Magnesium Sulfate 2 grams Route: IVPB; Infused Over: 2 hrs; Site: right forearm; bp 14:16 Follow up: Response: No adverse reaction; IV Status: Completed infusion; IV Intake: db 100ml Intake: 14:16 IV: 100ml; Total: 100ml. db 14:16 IV: 1000ml; Total: 1100ml. db Outcome: 12:26 Decision to Hospitalize by Provider. rt 15:46 Admitted to Med/surg accompanied by tech, via wheelchair, room 216, with chart, Report bp called to SHAR MURPHY 15:46 Condition: stable 15:46 Instructed on the need for admit. 17:10 Patient left the ED. aa5 NIH Stroke Scale - NIH Stroke Score Date: 07/10/2022 Time: 11:15 Total Score = 0 1a. Level of Consciousness (LOC) - 0(Alert) 1b. Level of Consciousness (LOC) (Month \T\ Age) - 0(Both) 1c. LOC Commands (Open \T\ Closes Eyes/City Councilman) - 0(Both) 2. Best Gaze (Lateral Gaze Paresis) - 0(Normal) 3. Visual Field Loss - 0(No visual loss) 4. Facial Palsy - 0(Normal) 5a. Left Arm: Motor (10-second hold) - 0(No drift) 5b. Right Arm: Motor (10-second hold) - 0(No drift) 6a. Left Leg: Motor (5-second hold - always test supine) - 0(No drift) 6b. Right Leg: Motor (5-second hold - always test supine) - 0(No drift) 7. Limb Ataxia (finger/nose \T\ heel/ellington - test with eyes open) - 0(Absent) 8. Sensory Loss (pinprick arms/legs/face) - 0(Normal) 9. Best Language: Aphasia (description/naming/reading) - 0(No aphasia) 10. Dysarthria (speech clarity - read or repeat words) - 0(Normal) 11. Extinction and Inattention (visual/tactile/auditory/spatial/personal) - 0(No abnormality) Initials: bp Signatures: Dispatcher [employer] ROBERT FossTeri stuart mr SanchezJackie, RN RN aa5 Lazaro Solitario RN RN bp Rees, Jessica, JEFFREY MURPHY jh5 Ritu Smith, JEFFREY RN db Bob Hernandez MD MD rt
--- NOTE | 2022-07-10 12:27 | EDPHYS ---
Physician Documentation [facility] Name: Baldemar Garcia Age: 57 yrs Sex: Male : 1965 Arrival Date: 07/10/2022 Time: 10:55 Bed 15 Private MD: Nany Arellano H ED Physician Bob Hernandez HPI: 07/10 11:19 This 57 yrs old Male presents to ER via Wheelchair with complaints of Shaking, Weakness.rt 11:19 Onset: The symptoms/episode began/occurred 3 day(s) ago. Associated signs and symptoms: rt Pertinent negatives: altered mental status, chills, fever, nausea. Severity of symptoms: At their worst the symptoms were moderate. Patient had a recent admission to the hospital for a generalized weakness with hypotension, likely due to intravascular volume depletion as well as hypokalemia and hypomagnesemia. Patient had symptomatic improvement with electrolyte repletion. The patient states that he has been feeling weak and shaky for the past 3 days, progressively worsening. He states that this is similar to when he was in the hospital about 2 weeks ago. He states that he has maintained good oral intake and has been taking his supplementation as previously prescribed. Denies fever, chills, pain. Patient states that he is unable to even stand due to the weakness. Symptoms are moderate severity, no other aggravating or alleviating factors.. Historical: - PMHx: 11:11 GERD; Hypertension; jh5 - PSHx: 11:11 bilateral knee surgery; 5 - Immunization history:: Adult Immunizations up to date. - Social history:: Smoking status: Patient denies any tobacco usage or history of. - Family history:: not pertinent. ROS: 11:19 Eyes: Negative for injury, pain, redness, and discharge, ENT: Negative for injury, rt pain, and discharge, Cardiovascular: Negative for chest pain, palpitations, and edema, Respiratory: Negative for shortness of breath, cough, wheezing, and pleuritic chest pain, Abdomen/GI: Negative for abdominal pain, nausea, vomiting, diarrhea, and constipation, MS/Extremity: Negative for injury and deformity, Skin: Negative for injury, rash, and discoloration, Psych: Negative for depression, anxiety, suicide ideation, homicidal ideation, and hallucinations. 11:19 Constitutional: Positive for Weakness, Negative for fever. 11:19 Neuro: Positive for weakness, Negative for altered mental status. Exam: 11:19 Constitutional: This is a well developed, well nourished patient who is awake, alert, rt and in no acute distress. 11:19 Head/Face: Normocephalic, atraumatic. Eyes: Pupils equal round and reactive to light, extra-ocular motions intact. Lids and lashes normal. Conjunctiva and sclera are non-icteric and not injected. Cornea within normal limits. Periorbital areas with no swelling, redness, or edema. ENT: Nares patent. No nasal discharge, no septal abnormalities noted. Tympanic membranes are normal and external auditory canals are clear. Oropharynx with no redness, swelling, or masses, exudates, or evidence of obstruction, uvula midline. Mucous membranes moist. Chest/axilla: Normal chest wall appearance and motion. Nontender with no deformity. No lesions are appreciated. Cardiovascular: Regular rate and rhythm with a normal S1 and S2. No gallops, murmurs, or rubs. Normal PMI, no JVD. No pulse deficits. Respiratory: Lungs have equal breath sounds bilaterally, clear to auscultation and percussion. No rales, rhonchi or wheezes noted. No increased work of breathing, no retractions or nasal flaring. Abdomen/GI: Soft, non-tender, with normal bowel sounds. No distension or tympany. No guarding or rebound. No evidence of tenderness throughout. Skin: Warm, dry with normal turgor. Normal color with no rashes, no lesions, and no evidence of cellulitis. MS/ Extremity: Pulses equal, no cyanosis. Neurovascular intact. Full, normal range of motion. Neuro: Awake and alert, GCS 15, oriented to person, place, time, and situation. Cranial nerves II-XII grossly intact. Motor strength 5/5 in all extremities. Sensory grossly intact. Cerebellar exam normal. Normal gait. Psych: Awake, alert, with orientation to person, place and time. Behavior, mood, and affect are within normal limits. 11:19 ECG was reviewed by the Attending Physician. rt Vital Signs: 11:08 BP 158 / 99; Pulse 106; Resp 16; Temp 98.8; Pulse Ox 100% ; Weight 89.81 kg; Height 5 jh5 ft. 6 in. (167.64 cm); Pain 0/10; 12:15 BP 153 / 90; Pulse 96; Resp 17; Pulse Ox 100% ; bp 13:30 BP 149 / 91; Pulse 91; Resp 20; Pulse Ox 100% ; bp 15:30 BP 141 / 90; Pulse 76; Resp 19; Pulse Ox 100% ; bp 11:08 Body Mass Index 31.96 (89.81 kg, 167.64 cm) 5 NIH Stroke Scale Scores: 11:15 NIHSS Score: 0 bp MDM: 11:03 Patient medically screened. rt 13:24 Data reviewed: vital signs, nurses notes, old medical records, lab test result(s), EKG, rt radiologic studies. Consideration of Admission/Observation Patient was admitted/placed on observation. Management of patient was discussed with the following: Hospitalist: Will admit. External Records Reviewed: Inpatient record: Previous admit for hypo k mg phos. Care significantly affected by the following Social Determinants of Health: Misuse of alcohol and/or drugs. Response to treatment: the patient's symptoms have mildly improved after treatment. 07/10 11:09 Order name: CBC with Diff rt 07/10 11:09 Order name: CMP; Complete Time: 12:05 rt 07/10 11:09 Order name: Magnesium; Complete Time: 12:05 rt 07/10 11:09 Order name: TSH; Complete Time: 12:05 rt 07/10 11:09 Order name: UA MICROSCOPIC rt 07/10 11:09 Order name: Lactate w/ 2H reflex if indic.; Complete Time: 12:05 rt 07/10 11:26 Order name: Phosphorus; Complete Time: 12:05 rt 07/10 11:41 Order name: CBC Smear Scan EDMS 07/10 12:46 Order name: SARS RAPID rt 07/10 14:04 Order name: Magnesium EDMS 07/10 14:04 Order name: NT PRO-BNP EDMS 07/10 14:04 Order name: Phosphorus EDMS 07/10 14:04 Order name: T4 Free EDMS 07/10 14:04 Order name: Thyroid Stimulating Hormone EDMS 07/10 11:09 Order name: EKG; Complete Time: 11:10 rt 07/10 11:09 Order name: EKG - Nurse/Tech; Complete Time: 11:20 rt 07/10 11:09 Order name: Chest Single View XRAY; Complete Time: 12:18 rt 07/10 14:00 Order name: ERT ORTHOSTATIC V/S EDMS 07/10 14:00 Order name: Brain Wo Cont EDMS 07/10 14:04 Order name: Heart Healthy EDMS 07/10 14:04 Order name: Urinalysis EDMS 07/10 14:04 Order name: Basic Metabolic Panel EDMS 07/10 14:04 Order name: Basic Metabolic Panel EDMS 07/10 14:04 Order name: CBC with Automated Diff EDMS 07/10 14:04 Order name: CBC with Automated Diff EDMS EC:19 Rate is 106 beats/min. Rhythm is regular, Sinus tachycardia with No ectopy. QRS [place] is rt Normal. TN interval is normal. QRS interval is normal. QT interval is normal. No Q waves. T waves are Normal. No ST changes noted. Interpreted by me. Administered Medications: 11:30 Drug: NS 0.9% 1000 ml Route: IV; Rate: 1 bolus; Site: right forearm; bp 14:16 Follow up: Response: No adverse reaction; IV Status: Completed infusion; IV Intake: db 1000ml 12:30 Drug: Magnesium Sulfate 2 grams Route: IVPB; Infused Over: 2 hrs; Site: right forearm; bp 14:16 Follow up: Response: No adverse reaction; IV Status: Completed infusion; IV Intake: db 100ml Disposition Summary: 07/10/22 12:26 Hospitalization Ordered Hospitalization Status: Observation rt Provider: Aristeo Neves rt Location: Telemetry/MedSurg (observation) rt Condition: Stable rt Problem: an ongoing problem rt Symptoms: have improved rt Bed/Room Type: Standard rt Room Assignment: 216(07/10/22 15:03) bd Diagnosis - Weakness rt - Hypomagnesemia rt - Lactic Acidosis rt Forms: - Medication Reconciliation Form rt - SBAR form rt NIH Stroke Scale - NIH Stroke Score Date: 07/10/2022 Time: 11:15 Total Score = 0 1a. Level of Consciousness (LOC) - 0(Alert) 1b. Level of Consciousness (LOC) (Month \T\ Age) - 0(Both) 1c. LOC Commands (Open \T\ Closes Eyes/Applications Engineer Manufacturing) - 0(Both) 2. Best Gaze (Lateral Gaze Paresis) - 0(Normal) 3. Visual Field Loss - 0(No visual loss) 4. Facial Palsy - 0(Normal) 5a. Left Arm: Motor (10-second hold) - 0(No drift) 5b. Right Arm: Motor (10-second hold) - 0(No drift) 6a. Left Leg: Motor (5-second hold - always test supine) - 0(No drift) 6b. Right Leg: Motor (5-second hold - always test supine) - 0(No drift) 7. Limb Ataxia (finger/nose \T\ heel/ellington - test with eyes open) - 0(Absent) 8. Sensory Loss (pinprick arms/legs/face) - 0(Normal) 9. Best Language: Aphasia (description/naming/reading) - 0(No aphasia) 10. Dysarthria (speech clarity - read or repeat words) - 0(Normal) 11. Extinction and Inattention (visual/tactile/auditory/spatial/personal) - 0(No abnormality) Initials: bp Signatures: Dispatcher [employer] EDMS Anaya Nieto Brian, RN RN bp Natalia Martin RN RN jh5 Bob Hernandez MD MD rt Ritu Smith RN db Corrections: (The following items were deleted from the chart) 15:03 12:26 rt connor
[2022-07-10 12:39] LABS: Platelet Estimate ADEQ; White Blood Cell Scan OK (OK)
[2022-07-10 12:40] LABS: Anisocytosis 2+; Blood Morphology Comment NOTED (NOT SEEN); Hypochromasia 1+; Macrocytosis 2+; Stomatocytes 1+
[2022-07-10] MEDS ORDERED: Magnesium Sulfate 2gm IVPB 2 G/50 ML BAG IV ONE (13:03)
[2022-07-10 13:29] LABS: SARS-CoV-2 Antigen Rapid Res Negative (Negative)
[2022-07-10] MEDS ORDERED: ACETAMINOPHEN 325 MG TABLET PO PRN (13:54)
[2022-07-10] MEDS ORDERED: HYDROCODONE/APAP 5/325 MG TAB PO PRN (13:54)
[2022-07-10] MEDS ORDERED: ONDANSETRON 4 MG/2 ML VIAL IV PRN (14:00)
[2022-07-10] MEDS ORDERED: chlordiazePOXIDE HCl 5 MG CAP PO PRN (14:06)
[2022-07-10] MEDS ORDERED: LORazepam 2 MG/ML VIAL IV PRN (14:06)
--- NOTE | 2022-07-10 14:15 | P.HP ---
Certification for Inpatient Patient admitted to: Observation With expected LOS: <2 Midnights Patient will require the following post-hospital care: None Practitioner: I am a practitioner with admitting privileges, knowledge of patient current condition, hospital course, and medical plan of care. Services: Services provided to patient in accordance with Admission requirements found in Title 42 Section 412.3 of the Code of Federal Regulations <Rosales Noriega Dunia - Last Filed: 07/10/22 14:50> Patient History Date of Service: 07/10/22 Reason for admission: BLE weakness, dizziness History of Present Illness: Patient is a 57-year-old male with a past medical history significant for GERD, hypertension, alcohol abuse who presents with complaint of bilateral lower extremity weakness and dizziness that has been ongoing for the past 5 weeks but became worse in the last 3 days. Patient reported that he feels dizzy whenever he tries to get up. Patient reported that he was seen in the hospital 2 weeks ago for similar symptoms. Patient reported associated signs and symptoms of poor gait and tremors. Patient denies any other signs and symptoms. Symptoms are aggravated or relieved by nothing. Patient reported that he has been having difficulty walking due to weakness and has had had some falls in the last couple of weeks. Patient decided to present to the hospital for medical evaluation. - Past Medical/Surgical History Diabetic: No -: GERD -: HTN -: laxmi knee surgery - Social History Smoking Status: Unknown if ever smoked Alcohol use: Yes CD- Drugs: No Caffeine use: No Place of Residence: Home <JonathanFroilan riveraclarkveronica Dunia - Last Filed: 07/10/22 14:50> Date of Service: 07/10/22 <Aristeo Neves - Last Filed: 07/10/22 15:53> Allergies No Known Allergies Allergy (Unverified 08/05/17 00:03) Home Medications: RX: Ensure Enlive 237 ml PO BID can 06/29/22 RX: Folic Acid 1 mg PO DAILY 30 Days #30 tab 06/29/22 RX: Potassium Chloride [Klor-Con] 20 meq PO DAILY 5 Days #5 packet 06/29/22 Review of Systems General: Weakness Eyes: Unremarkable ENT: Unremarkable Respiratory: Unremarkable Cardiovascular: Unremarkable Gastrointestinal: Unremarkable Genitourinary: Unremarkable Musculoskeletal: Other (Poor gait ) Integumentary: Unremarkable Neurological: Weakness, Other (Dizziness) Lymphatics: Unremarkable <Rosales Noriega - Last Filed: 07/10/22 14:50> Physical Examination - Physical Exam General: Alert, Oriented x3, Cooperative HEENT: Atraumatic, PERRLA, Mucous membr. moist/pink, EOMI, Sclerae nonicteric Neck: Supple, 2+ carotid pulse no bruit, No LAD, Without JVD or thyroid abnormality Respiratory: Clear to auscultation bilaterally, Normal air movement Cardiovascular: No edema, Regular rate/rhythm, Normal S1 S2 Capillary refill: <2 Seconds Gastrointestinal: Normal bowel sounds, Soft and benign, No tenderness Musculoskeletal: No clubbing, No swelling, No tenderness Integumentary: No rashes, No breakdown, No significant lesion, No tenderness/swelling, No erythema Neurological: Normal speech, Normal tone, Normal affect, Abnormal strength Lymphatics: No axilla or inguinal lymphadenopathy - Studies Laboratory Data (last 24 hrs) 07/10/22 11:20: Phosphorus 1.9 L 07/10/22 11:20: Sodium 141, Potassium 3.9, BUN 6 L, Creatinine 1.29, Glucose 126 H, Magnesium 1.2 L*, Total Bilirubin 0.9, AST 109 H, ALT 50, Alkaline Phosphatase 298 H 07/10/22 11:20: WBC 6.70, Hgb 9.2 L, Hct 26.8 L, Plt Count 234 <Rosales Noriega - Last Filed: 07/10/22 14:50> - Studies Laboratory Data (last 24 hrs) 07/10/22 11:20: Phosphorus 1.9 L 07/10/22 11:20: Sodium 141, Potassium 3.9, BUN 6 L, Creatinine 1.29, Glucose 126 H, Magnesium 1.2 L*, Total Bilirubin 0.9, AST 109 H, ALT 50, Alkaline Phosphatase 298 H 07/10/22 11:20: WBC 6.70, Hgb 9.2 L, Hct 26.8 L, Plt Count 234 <Aristeo Neves - Last Filed: 07/10/22 15:53> Assessment and Plan - Plan --Bilateral lower extremity weakness. MRI brain pending for further evaluation. Neurologist consulted. PT eval and treat. --Dizziness. Patient recently had an echocardiogram and carotid Doppler with unremarkable findings. We will get some orthostatic vital signs. Neurologist on board. Fall precaution. Will await further recommendations. --Hypomagnesemia\hypophosphatemia. Replete as needed. --CKD 2. Improving renal functions compared to levels 2 weeks ago. We will continue to monitor renal functions. --GERD. Continue Protonix. --Abnormality of gait and mobility. MRI brain pending. PT eval and treat. Neurologist on board. Further management per neurologist. -- Lactic acidosis. Unclear etiology. Patient given bolus IV hydration in the ER. Blood cultures pending. Will trend lactic acid levels. --Hypertension. Poorly controlled. We will manage blood pressure with labetalol as needed. -- Alcohol abuse. Patient noted with mild tremors. Patient placed on Librium and Ativan as needed. CIOH protocol. ---Anemia of chronic disease. H&H stable. We will continue to monitor hemoglobin and transfuse if less than 7.0. --Class I obesity. Likely secondary to excess calories intake. Patient counseled on weight reduction, diet and excise therapy. -- DVT prophylaxis with heparin subQ Discharge Plan: Home Plan to discharge in: 48 Hours - Advance Directives Does patient have a Living Will: No Does patient have a Durable POA for Healthcare: No - Code Status/Comfort Care Code Status Assessed: Yes Physician Review: Patient Assessed, Agree with Above Assessment and Plan Critical Care: No <Rosales Noriega - Last Filed: 07/10/22 14:50> Physician Review: Patient Assessed, Agree with Above Assessment and Plan <Aristeo Neves - Last Filed: 07/10/22 15:53>
[2022-07-10] MEDS ORDERED: SODIUM CHLORIDE 0.9% 10ML INJ IV PRN (14:32)
[2022-07-10] MEDS ORDERED: LABETALOL 20 MG/4ML SYRINGE IV PRN (14:40)
[2022-07-10] MEDS ORDERED: POTASSIUM PHOS 10 MM in NA CHLORIDE 0.9% 250 ML IV ONE (15:00)
[2022-07-10] MEDS ORDERED: MAGNESIUM 50% 3 GM in NA CHLORIDE 0.9% 100 ML IV ONE (16:00)
--- NOTE | 2022-07-10 16:16 | RAD REPORT ---
EXAM DESCRIPTION: MRI - Brain Wo Cont - 07/10/2022 4:06 pm CLINICAL HISTORY: BLE weakness Headache, drowsiness COMPARISON: Head C Spine Mpr Wo Con dated 06/26/2022 TECHNIQUE: Multi-sequence, multiplanar MR imaging of the brain was performed without contrast. FINDINGS: No intracranial hemorrhage, hydrocephalus or extra-axial fluid collections.Mild chronic pe riventricular microvascular ischemic changes present. No edema or shift of midline structures. No fin dings to suspect brain mass. DWI is negative for acute CVA. Midline structures are normally formed. Chronic appearing sphenoid sinusitis. IMPRESSION: No acute or aggressive intracranial abnormalities.
[2022-07-10 17:22] LABS: Magnesium 1.8 mg/dL (1.6-2.4); Phosphorus 2.3 mg/dL (2.5-4.9); Thyroid Stimulating Hormone 1.76 uIU/mL (0.358-3.740)
[2022-07-10] MEDS: PANTOPRAZOLE 40 MG INJ IVP SCH (18:06)
[2022-07-10] MEDS: chlordiazePOXIDE HCl 5 MG CAP PO SCH ×2 (18:07→22:08)
[2022-07-10 19:06] VITALS: BMI 31.9
[2022-07-10] MEDS: ENSURE ENLIVE 237 ML CAN PO SCH (20:34)
[2022-07-10 23:33] LABS: Calcium Oxalate Crystals- Ur Few /HPF (None Seen); Specific Gravity 1.015 (1.005-1.030); Urine Bacteria None Seen /HPF (<20); Urine Bilirubin NEGATIVE (Negative); Urine Blood Negative (Negative); Urine Clarity Clear (Clear); Urine Color Yellow (Yellow); Urine Glucose NEGATIVE (Negative); Urine Mucus Slight /HPF (None Seen); Urine Protein TRACE (Negative); Urine RBC <5 /HPF (None Seen); Urine Urobilinogen Normal (Normal)
[2022-07-11] MEDS ORDERED: MELATONIN 5 MG TABLET PO PRN (02:12)
[2022-07-11 05:38] LABS: Absolute Lymphocytes (CBC) 0.7 K/uL (0.7-4.9); Hematocrit 25.1 % (39.6-49.0); Lymphocytes % 12.7 % (15.3-44.8); MCV 108.3 fL (80-100); MPV 8.5 fL (7.6-11.3); RBC Red Blood Cell Count 2.32 M/uL (4.33-5.43)
[2022-07-11 06:27] LABS: C-Reactive Protein 11.9 mg/L (<3.00); Magnesium 1.9 mg/dL (1.6-2.4); Phosphorus 2.7 mg/dL (2.5-4.9); Potassium 3.7 mmol/L (3.5-5.1)
--- NOTE | 2022-07-11 07:38 | EKG ---
Test Date: 2022-07-10 Test Time: 11:10:48 Studio Hand: BP MEASUREMENT RESULTS: Intervals: Rate: 106 OR: 156 QRSD: 54 QT: 338 QTc: 448 [place]: P: 40 OR: 156 QRS: 2 T: 9 INTERPRETIVE STATEMENTS: Sinus tachycardia Low voltage QRS Cannot rule out Anterior infarct, age undetermined Abnormal ECG Compared to ECG 06/26/2022 07:32:09 Myocardial infarct finding now present Sinus rhythm no longer present Atrial premature complex(es) no longer present Aberrant conduction of supraventricular beat(s) no longer present ST (T wave) deviation no longer present Electronically Signed On 07-11-22 07:36:04 [employer] PATHOLOGIST TRAVEL by Gavin Johnson
[2022-07-11] MEDS ORDERED: INFLUENZA VACCINE (for 6+ mo) 0.5 ML DOSE IMVAC ONE (08:00)
[2022-07-11] MEDS: ASPIRIN 81 MG CHEWABLE TABLET PO SCH (08:00)
[2022-07-11] MEDS: PANTOPRAZOLE 40 MG INJ IVP SCH (08:00)
[2022-07-11] MEDS: POTASSIUM CL SA 10 MEQ TAB PO SCH (08:01)
[2022-07-11] MEDS: chlordiazePOXIDE HCl 5 MG CAP PO SCH ×3 (08:01→20:42)
[2022-07-11] MEDS: FOLIC ACID 1 MG TABLET PO SCH (08:01)
[2022-07-11] MEDS: ENSURE ENLIVE 237 ML CAN PO SCH ×2 (08:01→20:42)
[2022-07-11] MEDS: ENOXAPARIN 40 MG/0.4 ML SQ SCH ×2 (08:02→09:05)
[2022-07-11] MEDS ORDERED: HOME MED 1 EA UNK (Potassium Chloride [Klor-Con] 20 MEQ Packet) PO SCH (09:00)
[2022-07-11] MEDS ORDERED: POTASSIUM CL SA 10 MEQ TAB PO ONE (09:00)
[2022-07-11] MEDS: FOLIC ACID 1 MG, MULTIVITAMINS INJ 10 ML, THIAMINE HCL 100 MG in NA CHLORIDE 0.9% 1,000 ML IV SCH (09:05)
--- NOTE | 2022-07-11 17:26 | P.PN ---
Subjective Date of Service: 07/11/22 Chief Complaint: BLE weakness, dizziness Overnight, he reports that he has had numerous watery brown bowel movements. He states that his gait has improved. He denies any abdominal pain, nausea, or vomiting. Review of Systems 10-point ROS is otherwise unremarkable Gastrointestinal: Diarrhea Neurological: Weakness, Incoordination Physical Examination - Vital Signs Temperature: 97.1 F Blood Pressure: 135/82 Pulse: 84 Respirations: 18 Pulse Ox (%): 100 - Physical Exam General: Alert, In no apparent distress, Oriented x3 HEENT: Atraumatic, Mucous membr. moist/pink, EOMI, Sclerae nonicteric Neck: JVD not distended Respiratory: Clear to auscultation bilaterally, Normal air movement Cardiovascular: No edema, Regular rate/rhythm, Normal S1 S2 Gastrointestinal: Soft and benign, Non-distended, No tenderness, Hyperactive Musculoskeletal: No clubbing Integumentary: No rashes Neurological: Normal speech, Normal strength at 5/5 x4 extr, Cranial nerves 3-12 intact, Normal affect, Abnormal gait (slightly ataxic) - Studies Laboratory Data (last 24 hrs) 07/11/22 05:16: Sodium 142, Potassium 3.7, BUN 7, Creatinine 1.13, Glucose 101, Phosphorus 2.7, Magnesium 1.9 07/11/22 05:16: WBC 5.60, Hgb 8.5 L, Hct 25.1 L, Plt Count 192 07/11/22 05:00: Phosphorus Cancelled, Magnesium Cancelled 07/10/22 16:49: Phosphorus 2.3 L, Magnesium 1.8 Assessment And Plan - Plan # Ataxic Gait in Alcohol Use Disorder # Bilateral Lower Extremity Weakness - suspect secondary to Severe Electrolyte Derangements # Macrocytic Anemia likely secondary to Alcohol Use # Hypomagnesemia and Hypophosphatemia possibly secondary to Diarrhea - Laboratory evaluation: - Phos: 1.9 -> 2.3 -> 2.7 - M.2 -> 1.8 -> 1.9 - CRP: 11.90 - Vitamin B12: 367 - Aldolase: pending - CK: 27 - TSH: 2.15 - Chest x-ray = "no acute cardiopulmonary disease." - MRI brain = "no acute or aggressive intracranial abnormalities." - Consulted Neurology and spoke with Dr. Stroud - recommendations appreciated - Differential diagnosis includes, but is not limited to, alcohol induced myopathy versus electrolyte derangements - Continue IV banana bag - Continue chlordiazepoxide - Replace electrolytes as needed - Ordered C. Difficile stool antigen # Hypertension - Reconcile home medications once verified # Lactic Acidosis likely secondary to Dehydration (improved) - Currently no evidence of infection - Lactate trend: 3.6 -> 3.9 -> 2.0 # Gastroesophageal Reflux Disease - Continue home pantoprazole # Obesity - BMI 32.0 kg/m2 - Lifestyle modifications Aristeo Neves M.D.
[2022-07-12 04:45] VITALS: O2SAT 100
[2022-07-12 07:49] LABS: Absolute Lymphocytes (CBC) 0.9 K/uL (0.7-4.9); Lymphocytes % 18.6 % (15.3-44.8); MCV 110.2 fL (80-100); MPV 8.5 fL (7.6-11.3); RBC Red Blood Cell Count 2.08 M/uL (4.33-5.43)
[2022-07-12 07:53] LABS: Magnesium 1.7 mg/dL (1.6-2.4); Potassium 3.9 mmol/L (3.5-5.1)
[2022-07-12] MEDS: FOLIC ACID 1 MG TABLET PO SCH (08:36)
[2022-07-12] MEDS: chlordiazePOXIDE HCl 5 MG CAP PO SCH (08:36)
[2022-07-12] MEDS: PANTOPRAZOLE 40 MG INJ IVP SCH (08:36)
[2022-07-12] MEDS: ASPIRIN 81 MG CHEWABLE TABLET PO SCH (08:36)
[2022-07-12] MEDS: ENOXAPARIN 40 MG/0.4 ML SQ SCH (08:37)
[2022-07-12] MEDS: ENSURE ENLIVE 237 ML CAN PO SCH (08:37)
[2022-07-12] MEDS: POTASSIUM CL SA 10 MEQ TAB PO SCH (08:37)
[2022-07-12] MEDS: FOLIC ACID 1 MG, MULTIVITAMINS INJ 10 ML, THIAMINE HCL 100 MG in NA CHLORIDE 0.9% 1,000 ML IV SCH (08:38)
[2022-07-12 09:50] LABS: Anisocytosis 1+; Blood Morphology Comment NOTED (NOT SEEN); Macrocytosis 2+; Platelet Estimate ADEQ; Poikilocytosis SLIGHT; White Blood Cell Scan OK (OK)
[2022-07-12 10:14] LABS: C.diff Antigen/Toxin Ag neg : Tox neg (NEG : NEG)
[2022-07-12 12:48] VITALS: BP 112/79; TEMP 97.3
[2022-07-12 12:48] LABS: Absolute Lymphocytes (CBC) 0.8 K/uL (0.7-4.9); Hematocrit 26.5 % (39.6-49.0); Lymphocytes % 14.6 % (15.3-44.8); MPV 8.1 fL (7.6-11.3)
[2022-07-12 12:55] LABS: MCV 110.6 fL (80-100)
--- NOTE | 2022-07-12 13:54 | P.DS ---
Admission Date: 07/11/22 Discharge Date: 07/12/22 Disposition: ROUTINE DISCHARGE Discharge Condition: GOOD Reason for Admission: BLE weakness, dizziness Consultations: 1. Neurology Hospital Course: DIAGNOSES: # Ataxic Gait in Alcohol Use Disorder # Bilateral Lower Extremity Weakness - suspect secondary to Severe Electrolyte Derangements # Macrocytic Anemia likely secondary to Alcohol Use # Hypomagnesemia and Hypophosphatemia possibly secondary to Diarrhea (Likely Viral Gastroenteritis) # Hypertension # Lactic Acidosis likely secondary to Dehydration (improved) # Gastroesophageal Reflux Disease # Obesity - BMI 32.0 kg/m2 HOSPITAL COURSE: Mr. Baldemar Garcia is a 57 year old male with a past medical history significant for alcohol use disorder, hypertension, and gastroesophageal reflux disease who was admitted to the [facility] on 07/10/2022 for bilateral lower extremity weakness. He was admitted to the Medicine service. Upon further evaluation, he was found to have several electrolyte derangements particularly a phosphorus of 1.9 and a magnesium of 1.2. His electrolytes were replaced and Neurology was consulted. He was evaluated by Dr. Stroud, who believed his symptoms to be secondary to alcoholinduced myopathy versus weakness from electrolyte derangements. In regards to the etiology of his electrolyte derangements, he had severe watery diarrhea. Clostridium Difficile stool toxin returned negative. Over the course of his hospitalization, his electrolytes normalized, and his symptoms completely resolved. He was able to ambulate around the nursing station without any gait disturbance or difficulty. This morning, he stated that his diarrhea has also improved. He is eager to be discharged home. His case was discussed with Dr. Stroud, who agrees that he is cleared to be discharged home. He was counseled on the importance of alcohol cessation, and he verbalized understanding. On 07/12/2022, he was seen on rounds and deemed medically stable for discharge. He was discharged with instructions to schedule follow-up appointments with his PCP (Dr. Arellano) and with Neurology (Dr. Stroud). He was given the opportunity to ask questions and reported no further questions. Furthermore, all questions were answered to the best of my ability. A copy of this discharge summary will be sent to the above providers to facilitate continuity of care. Today, I personally spent 25 minutes on her case, of which greater than 50% of the time was spent in patient education, counseling, and coordination of care as described above. - Physical Exam General: Alert, In no apparent distress, Oriented x3 HEENT: Atraumatic, Mucous membr. moist/pink, EOMI, Sclerae nonicteric Neck: JVD not distended Respiratory: Clear to auscultation bilaterally, Normal air movement Cardiovascular: No edema, Regular rate/rhythm, Normal S1 S2 Gastrointestinal: Soft and benign, Non-distended, No tenderness, Hyperactive Musculoskeletal: No clubbing Integumentary: No rashes Neurological: Normal speech, Normal strength at 5/5 x4 extr, Cranial nerves 3-12 intact, Normal affect, Normal gait Vital Signs/Physical Exam: Temp Pulse Resp BP Pulse Ox 97.3 F 76 22 H 112/79 100 07/12/22 12:00 07/12/22 12:00 07/12/22 12:00 07/12/22 12:00 07/12/22 12:00 Laboratory Data at Discharge: WBC 5.70 K/uL (4.3-10.9) 07/12/22 12:40 Hgb 8.9 g/dL (13.6-17.9) L D 07/12/22 12:40 Hct 26.5 % (39.6-49.0) L 07/12/22 12:40 Plt Count 169 K/uL (152-406) 07/12/22 12:40 Sodium 144 mmol/L (136-145) 07/12/22 07:11 Potassium 3.9 mmol/L (3.5-5.1) 07/12/22 07:11 BUN 7 mg/dL (7-18) 07/12/22 07:11 Creatinine 1.15 mg/dL (0.70-1.30) 07/12/22 07:11 Glucose 98 mg/dL (74-106) 07/12/22 07:11 Phosphorus 2.7 mg/dL (2.5-4.9) 07/11/22 05:16 Magnesium 1.7 mg/dL (1.6-2.4) 07/12/22 07:11 Total Bilirubin 0.9 mg/dL (0.2-1.0) 07/10/22 11:20 AST 109 U/L (15-37) H 07/10/22 11:20 ALT 50 U/L (16-61) 07/10/22 11:20 Alkaline Phosphatase 298 U/L (45-117) H 07/10/22 11:20 Home Medications: RX: Ensure Enlive 237 ml PO BID can 06/29/22 RX: Folic Acid 1 mg PO DAILY 30 Days #30 tab 06/29/22 RX: Thiamine HCl 100 mg PO DAILY #1 tab 07/12/22 New Medications: RX: Thiamine HCl 100 mg PO DAILY #1 tab Physician Discharge Instructions: 1. Please call and schedule a follow-up appointment with your PCP (Dr. Arellano) in 3-5 days 2. Please call and schedule a follow-up appointment with Neurology (Dr. Stroud) in 1-2 weeks Diet: AHA Activity: Ad sharif Followup: Jone Stroud MD [ASSOCIATE-ACTIVE - CAN ADMIT] - Nany Arellano DO, DO [Primary Care Provider] - Time spent managing pt's care (in minutes): 25
== END 2022-07-12 15:30 | disposition home or self-care (01) | DRG 92 ==
LOC: ER 10:50 → ERHOLD 13:51 → 2ND 15:56 → OBSVTOIN 07-11 15:59
PROVIDERS: ADMIT Internal Medicine; ATTEND Internal Medicine
DX: G72.1 Alcoholic myopathy (principal); E87.20 Acidosis, unspecified; E87.8 Other disorders of electrolyte and fluid balance, not elsewhere classified; E83.42 Hypomagnesemia; K21.9 Gastro-esophageal reflux disease without esophagitis; I12.9 Hypertensive chronic kidney disease with stage 1 through stage 4 chronic kidney disease, or unspecified chronic kidney disease; N18.2 Chronic kidney disease, stage 2 (mild); D63.1 Anemia in chronic kidney disease; E83.39 Other disorders of phosphorus metabolism; F10.10 Alcohol abuse, uncomplicated; E66.9 Obesity, unspecified; A08.4 Viral intestinal infection, unspecified; D53.9 Nutritional anemia, unspecified; E86.0 Dehydration; R26.0 Ataxic gait; Z68.32 Body mass index [BMI] 32.0-32.9, adult; Z79.899 Other long term (current) drug therapy; Z20.822 Contact with and (suspected) exposure to COVID-19
CPT/HCPCS: 36415; 70551; 71045; 80048; 80053; 81001; 82085; 82550; 82607; 83605; 83735; 83880; 84100; 84439; 84443; 85025; 86140; 87324; 87811; 93005; 96361; 96365; 96366; 97161; 99285; C9113; G0378; G0480; J1650; J2405; J3411; J3475; J7030; J7050

== ENCOUNTER 2022-11-04 12:09 | Emergency (ER) | payer SELFPAY ==
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
[2022-11-04] MEDS ORDERED: LORazepam 2 MG/ML VIAL ONE (12:45)
[2022-11-04] MEDS ORDERED: NA CHLORIDE 0.9% 1,000 ML ONE (12:46)
[2022-11-04 12:50] LABS: Absolute Lymphocytes (CBC) 1.5 K/uL (0.7-4.9); MCV 97.6 fL (80-100); MPV 7.9 fL (7.6-11.3)
[2022-11-04 12:57] LABS: Protime INR 1.19
--- NOTE | 2022-11-04 13:05 | RAD REPORT ---
EXAM DESCRIPTION: CT - Head Brain Wo Cont - 11/04/2022 12:53 pm CLINICAL HISTORY: DIZZINESS COMPARISON: No comparisons TECHNIQUE: All CT scans are performed using dose optimization technique as appropriate and may inclu de automated exposure control or mA/KV adjustment according to patient size. FINDINGS: No intracranial hemorrhage, hydrocephalus or extra-axial fluid collection.No areas of brai n edema or evidence of midline shift. Chronic small vessel ischemic changes. Opacified right sphenoid sinus. The paranasal sinuses and mastoids are clear. The calvarium is intact. IMPRESSION: No acute intracranial abnormality.
[2022-11-04 13:11] LABS: Albumin 3.7 g/dL (3.4-5.0); Bilirubin Direct 1.1 mg/dL (0-0.2); Bilirubin Indirect, Calculated 1.6 (0.2-0.8); Bilirubin Total 2.7 mg/dL (0.2-1.0); Potassium 3.1 mEq/L (3.5-5.1); Protein, Total 8.7 g/dL (6.4-8.2); Troponin High Sensitivity 4.2 pg/mL (<58.9)
[2022-11-04 13:17] LABS: Anisocytosis 1+; Blood Morphology Comment NOTED (NOT SEEN); Stomatocytes 1+; Target Cells FEW; White Blood Cell Scan OK (OK)
[2022-11-04 13:18] LABS: Platelet Estimate DECR
--- NOTE | 2022-11-04 13:57 | RAD REPORT ---
EXAM DESCRIPTION: RAD - Chest Single View - 11/04/2022 1:43 pm CLINICAL HISTORY: dizziness COMPARISON: Chest Single View dated 07/10/2022; Chest Single View dated 06/26/2022; Chest Pa And Lat (2 Views) dated 09/09/2018; Chest Single View dated 08/04/2017 FINDINGS: Lines: None. Lungs: No evidence of edema or pneumonia. Pleural: No significant pleural effusions or pneumothorax. Cardiac: The heart size is within normal limits. Mediastinum: Within normal limits. Bones: No acute fractures. Other: None IMPRESSION: No acute cardiopulmonary disease.
[2022-11-04] MEDS ORDERED: POTASSIUM 25 MEQ EFFERV TAB ONE (14:15)
[2022-11-04] MEDS ORDERED: Magnesium Sulfate 2gm IVPB 2 G/50 ML BAG IV ONE (14:15)
--- NOTE | 2022-11-04 15:01 | RAD REPORT ---
EXAM DESCRIPTION: CTAbdomen Pelvis Wo Contrast - 11/04/2022 2:50 pm CLINICAL HISTORY: abnormal liver enzymes COMPARISON: Chest Abd Pelvis Wo Con dated 06/26/2022 TECHNIQUE: CT of the abdomen and pelvis was performed. All CT scans are performed using dose optimization technique as appropriate and may include automated exposure control or mA/KV adjustment according to patient size. FINDINGS: Lower chest: No acute abnormality. Mild circumferential thickened distal esophagus which c ould reflect esophagitis. Liver: No acute abnormality or suspicious lesions. Biliary: No biliary ductal dilatation. Stomach: No significant focal abnormality. Duodenum: No significant focal abnormality. Pancreas: No significant abnormality. Spleen: Borderline splenomegaly. Adrenal: No suspicious lesions. Kidney/ureter: No hydronephrosis. No renal calculi. Dense right interpolar renal lesion measuring 16 millimeters most likely represents a hemorrhagic cyst . Retroperitoneum: No retroperitoneal adenopathy. Vascular: No aneurysm. Bowel: No significant focal abnormality. Normal appendix Peritoneum: No ascites or free air. Bladder: Grossly unremarkable. Reproductive: No adnexal masses. Bones: No acute fracture. Other: n/a IMPRESSION: No acute intra-abdominal or pelvic finding. Incidental findings as noted above.
--- NOTE | 2022-11-04 15:53 | RAD REPORT ---
EXAM DESCRIPTION: RAD - Forearm Left - 11/04/2022 3:01 pm CLINICAL HISTORY: PAIN COMPARISON: No comparisons FINDINGS/IMPRESSION: No acute fracture. No malalignment. No significant focal degenerative changes.
--- NOTE | 2022-11-04 16:30 | ER ---
Nurse's Notes [facility] Name: Baldemar Garcia Age: 57 yrs Sex: Male : 1965 Arrival Date: 11/04/2022 Time: 12:09 Bed 4 Private MD: Diagnosis: Hypomagnesemia;Hypokalemia;Abnormal results of liver function studies;Dizziness and giddiness;Pain in left forearm;Alcohol dependence with withdrawal, unspecified Presentation: 11/04 12:23 Chief complaint: Patient states: "I just started feeling dizzy about an hour ago and aa5 then my left arm started hurting and it comes and goes". Pt denies headache, denies nausea/vomiting, denies chest pain. Coronavirus screen: At this time, the client does not indicate any symptoms associated with coronavirus-19. Ebola Screen: Patient denies travel to an Ebola-affected area in the 21 days before illness onset. Initial Sepsis Screen: Does the patient meet any 2 criteria? HR > 90 bpm. Does the patient have a suspected source of infection? No. Patient's initial sepsis screen is negative. Risk Assessment: Do you want to hurt yourself or someone else? Patient reports no desire to harm self or others. Onset of symptoms was November 04, 2022. 12:23 Acuity: OLEG 3 aa5 12:23 Method Of Arrival: Ambulatory aa5 Historical: - Allergies: 12:24 No Known Allergies; aa5 - PMHx: 12:24 GERD; Hypertension; aa5 - PSHx: 12:24 bilateral knee surgery; aa5 - Immunization history:: Adult Immunizations unknown. - Social history:: Smoking status: Patient denies any tobacco usage or history of. Screenin:18 [facility] ED Fall Risk Assessment (Adult) History of falling in the last 3 months, kr3 including since admission No falls in past 3 months (0 pts) Confusion or Disorientation No (0 pts) Intoxicated or Sedated No (0 pts) Impaired Gait No (0 pts) Mobility Assist Device Used No (0 pt) Altered Elimination No (0 pt) Score/Fall Risk Level 0 - 2 = Low Risk Oriented to surroundings, Maintained a safe environment, Educated pt \\T\\ family on fall prevention, incl call for assistance when getting out of bed, Assessed \\T\\ reinforced patient's understanding of fall precautions, Hourly rounding (assess needs \\T\\ fall precautionary measures) done. Abuse screen: Denies threats or abuse. Nutritional screening: No deficits noted. Tuberculosis screening: No symptoms or risk factors identified. Assessment: 12:40 General: Appears in no apparent distress. comfortable, Behavior is anxious. Pain: kr3 Denies pain. Neuro: Level of Consciousness is awake, alert, obeys commands, Oriented to person, place, time, situation. Cardiovascular: Patient's skin is warm and dry. Respiratory: Airway is patent Respiratory effort is even, unlabored, Respiratory pattern is regular, symmetrical. GI: No signs and/or symptoms were reported involving the gastrointestinal system. : No signs and/or symptoms were reported regarding the genitourinary system. EENT: No deficits noted. Derm: No signs and/or symptoms reported regarding the dermatologic system. Musculoskeletal: No signs and/or symptoms reported regarding the musculoskeletal system. 13:50 Reassessment: Patient appears in no apparent distress at this time. Patient and/or kr3 family updated on plan of care and expected duration. Pain level reassessed. pt states "my arm is feeling better". 15:11 Reassessment: Patient appears in no apparent distress at this time. Patient and/or kr3 family updated on plan of care and expected duration. Pain level reassessed. Patient is alert, oriented x 3, equal unlabored respirations, skin warm/dry/pink. 16:18 Reassessment: Patient appears in no apparent distress at this time. Patient and/or kr3 family updated on plan of care and expected duration. Pain level reassessed. Patient is alert, oriented x 3, equal unlabored respirations, skin warm/dry/pink. Vital Signs: 12:23 BP 138 / 94; Pulse 120; Resp 18 S; Temp 97.7(TE); Pulse Ox 98% ; Weight 79.38 kg (R); aa5 Height 5 ft. 8 in. (R); 13:02 BP 132 / 92; Pulse 104; Resp 18; Pulse Ox 100% ; ld1 14:04 BP 138 / 93; Pulse 98; Resp 18; Pulse Ox 100% on R/A; ld1 15:11 BP 139 / 106; Pulse 103; Resp 18; Pulse Ox 100% on R/A; kr3 16:37 BP 137 / 91; Pulse 93; Resp 18; Pulse Ox 100% on R/A; ld1 12:23 Body Mass Index 26.61 (79.38 kg, 172.72 cm) aa5 ED Course: 12:11 Patient arrived in ED. mr 12:21 Jesse Galindo PA is PHCP. cp 12:21 Jvai Hall MD is Attending Physician. cp 12:23 Arm band placed on. aa5 12:24 Triage completed. aa5 12:31 Kimberly Butt, JEFFREY is Primary Nurse. kr3 12:40 Bed in low position. Call light in reach. Side rails up X 1. kr3 12:46 Basic Metabolic Panel Sent. bc6 12:46 CBC with Diff Sent. bc6 12:46 LFT's Sent. bc6 12:46 Magnesium Sent. bc6 12:46 NT PRO-BNP Sent. bc6 12:46 PT-INR Sent. bc6 12:46 Troponin HS Sent. bc6 12:46 Inserted saline lock: 20 gauge in left antecubital area, using aseptic technique. bc6 12:55 CT Head Brain wo Cont In Process Unspecified. EDMS 13:45 XRAY Chest (1 view) In Process Unspecified. EDMS 14:52 Abdomen In Process Unspecified. EDMS 15:03 XRAY Forearm LEFT In Process Unspecified. EDMS 16:28 Morro Gallegos MD is Referral Physician. cp 16:42 No provider procedures requiring assistance completed. IV discontinued, intact, ld1 bleeding controlled, No redness/swelling at site. Administered Medications: 12:45 Drug: NS 0.9% IV 1000 ml Route: IV; Rate: 1 bolus; Site: left antecubital; kr3 12:45 Drug: Ativan IVP 1 mg Route: IVP; Site: left antecubital; kr3 14:14 Drug: Magnesium Sulfate IVPB 2 grams Route: IVPB; Infused Over: 2 hrs; Site: left ld1 antecubital; 14:14 Drug: Potassium PO Effervescent Tablet 50 mEq Route: PO; ld1 Medication: 16:19 VIS not applicable for this client. kr3 Outcome: 16:30 Discharge ordered by . cp 16:42 Discharged to home ambulatory. ld1 16:42 Condition: stable 16:42 Discharge instructions given to patient, Instructed on discharge instructions, follow up and referral plans. medication usage, Demonstrated understanding of instructions, follow-up care, medications, Prescriptions given X 2. 16:43 Patient left the ED. ld1 Signatures: Dispatcher [employer] [facility] Pipo Teri Daniel, Jackie, RN RN aa5 Jesse Galindo PA PA cp Sims, Lauren, RN RN ld1 Kimberly Butt RN RN kr3 Dahlia Mtz 6
--- NOTE | 2022-11-04 16:30 | EDPHYS ---
Physician Documentation [facility] Name: Baldemar Garcia Age: 57 yrs Sex: Male : 1965 Arrival Date: 11/04/2022 Time: 12:09 Bed 4 Private MD: ED Physician Javi Hall HPI: 11/04 12:37 This 57 yrs old Male presents to ER via Ambulatory with complaints of Dizziness, Arm cp Pain. 12:37 The patient presents with dizziness, lightheadedness. cp 12:37 Onset: The symptoms/episode began/occurred 1 hour(s) ago. cp 12:37 Context: occurred while the patient was sitting, just prior to the episode the patient cp experienced left forearm pain. Associated signs and symptoms: Pertinent negatives: abdominal pain, chest pain, confusion, diaphoresis, focal weakness, numbness, shortness of breath, syncope, vomiting. Patient's baseline: Neuro: alert and fully oriented, Motor: no deficits, Ambulation: walks without assistance, Speech: normal. Patient reports quitting drinking about 10 days ago after years of daily drinking but admits to having a drink last night. Historical: - Allergies: 12:24 No Known Allergies; aa5 - PMHx: 12:24 GERD; Hypertension; aa5 - PSHx: 12:24 bilateral knee surgery; aa5 - Immunization history:: Adult Immunizations unknown. - Social history:: Smoking status: Patient denies any tobacco usage or history of. ROS: 12:40 Cardiovascular: Negative for chest pain, edema, palpitations. cp 12:40 Eyes: Negative for injury, pain, redness, and discharge. cp 12:40 ENT: Negative for drainage from ear(s), ear pain, sore throat, difficulty swallowing, difficulty handling secretions. 12:40 Respiratory: Negative for cough, shortness of breath, wheezing. 12:40 Abdomen/GI: Negative for abdominal pain, nausea, vomiting, and diarrhea, constipation, anorexia, black/tarry stool, rectal bleeding. 12:40 MS/extremity: Positive for pain, of the left forearm, Negative for injury or acute deformity, decreased range of motion, paresthesias. 12:40 Skin: Negative for cellulitis, rash. 12:40 Neuro: Positive for dizziness, Negative for altered mental status, headache, numbness, syncope, weakness. 12:40 All other systems are negative. Exam: 12:40 ECG was reviewed by the Attending Physician. cp 12:45 Constitutional: The patient appears in no acute distress, alert, awake, cp non-diaphoretic, non-toxic, well developed, well nourished. 12:45 Head/Face: Normocephalic, atraumatic. cp 12:45 Eyes: Periorbital structures: appear normal, Pupils: equal, round, and reactive to light and accomodation, Extraocular movements: intact throughout, Conjunctiva: normal, no exudate, no injection, Sclera: no appreciated abnormality, Lids and lashes: appear normal, bilaterally. 12:45 ENT: External ear(s): are unremarkable, Ear canal(s): are normal, clear, TM's: dullness, bilaterally, Nose: is normal, Mouth: is normal, Posterior pharynx: is normal, airway is patent, no erythema, no exudate, Voice: is normal. 12:45 Neck: ROM/movement: is normal, is supple, without pain, no range of motions limitations, no meningismus, no nuchal rigidity. 12:45 Chest/axilla: Inspection: normal. 12:45 Cardiovascular: Rate: tachycardic, Rhythm: regular, Edema: is not appreciated, JVD: is not appreciated. 12:45 Respiratory: the patient does not display signs of respiratory distress, Respirations: normal, no use of accessory muscles, no retractions, labored breathing, is not present, Breath sounds: are clear throughout, no decreased breath sounds, no stridor, no wheezing. 12:45 Abdomen/GI: Inspection: abdomen appears normal, Bowel sounds: active, all quadrants, Palpation: abdomen is soft and non-tender, in all quadrants. 12:45 Back: pain, is absent, ROM is normal. 12:45 Musculoskeletal/extremity: Extremities: grossly normal except: noted in the left forearm: pain, tenderness, There is no evidence of erythema. 12:45 Skin: cellulitis, is not appreciated, no rash present. 12:45 Neuro: Orientation: to person, place \T\ time. Mentation: is normal, Cerebellar function: cp Romberg testing is negative, Motor: moves all fours, strength is normal, Sensation: is normal, Abnormal movements: resting tremor, is located in the right hand and left hand. Vital Signs: 12:23 BP 138 / 94; Pulse 120; Resp 18 S; Temp 97.7(TE); Pulse Ox 98% ; Weight 79.38 kg (R); aa5 Height 5 ft. 8 in. (R); 13:02 BP 132 / 92; Pulse 104; Resp 18; Pulse Ox 100% ; ld1 14:04 BP 138 / 93; Pulse 98; Resp 18; Pulse Ox 100% on R/A; ld1 15:11 BP 139 / 106; Pulse 103; Resp 18; Pulse Ox 100% on R/A; kr3 16:37 BP 137 / 91; Pulse 93; Resp 18; Pulse Ox 100% on R/A; ld1 12:23 Body Mass Index 26.61 (79.38 kg, 172.72 cm) aa5 MDM: 12:13 Patient medically screened. bs3 14:08 Data reviewed: vital signs, nurses notes, lab test result(s), EKG, radiologic studies, cp CT scan, plain films. Consideration of Admission/Observation Escalation of care including admission/observation considered. ED course: discussed results of today's labs with magnesium of 1. Patient remains tremulous. Discussed admission alcohol withdrawal. Patient declines at this time. 16:30 I considered the following discharge prescriptions or medication management in the emergency department Medications were administered in the Emergency Department. See MAR. 16:30 Care significantly affected by the following chronic conditions: Hypertension. 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 Response to treatment: the patient's symptoms have markedly improved after treatment, and as a result, I will discharge patient. 11/04 12:35 Order name: Basic Metabolic Panel; Complete Time: 13:48 11/04 13:49 Interpretation: Normal except: NA 134; K 3.1; GLUC 135; BUN 19; CRE 1.67; GFR 47. 11/04 12:35 Order name: CBC with Diff; Complete Time: 13:48 11/04 13:49 Interpretation: Normal except: RBC 3.90; HGB 12.9; HCT 38.0; PLT 95; RDW 17.4; JAKY% cp 74.1. 11/04 12:35 Order name: LFT's; Complete Time: 13:48 cp 11/04 13:50 Interpretation: Normal except: AST 49; BILIT 2.7; BILID 1.1; IBILI, CALC 1.6; TP 8.7; cp GLOB 5.0; A/G 0.7. 11/04 12:35 Order name: Magnesium; Complete Time: 13:48 cp 11/04 13:50 Interpretation: Abnormal: MG 1.0. cp 11/04 12:35 Order name: NT PRO-BNP; Complete Time: 13:48 cp 11/04 12:35 Order name: PT-INR; Complete Time: 13:48 cp 11/04 12:35 Order name: Troponin HS; Complete Time: 13:48 cp 11/04 12:35 Order name: ETOH Level; Complete Time: 13:48 cp 11/04 13:03 Order name: CBC Smear Scan; Complete Time: 13:48 EDMS 11/04 12:35 Order name: XRAY Chest (1 view); Complete Time: 14:22 cp 11/04 12:36 Order name: CT Head Brain wo Cont; Complete Time: 13:48 cp 11/04 13:51 Order name: XRAY Forearm LEFT; Complete Time: 15:54 cp 11/04 15:54 Interpretation: Report reviewed. cp 11/04 14:41 Order name: Abdomen ; Complete Time: 15:23 EDMS 11/04 12:35 Order name: EKG; Complete Time: 12:36 cp 11/04 12:35 Order name: Cardiac monitoring; Complete Time: 12:45 cp 11/04 12:35 Order name: EKG - Nurse/Tech; Complete Time: 12:46 cp 11/04 12:35 Order name: IV Saline Lock; Complete Time: 12:46 cp 11/04 12:35 Order name: Labs collected and sent; Complete Time: 12:46 cp 11/04 12:35 Order name: O2 Per Protocol; Complete Time: 12:46 cp 11/04 12:35 Order name: O2 Sat Monitoring; Complete Time: 12:45 cp EC:40 Rate is 106 beats/min. Rhythm is regular. TX interval is normal. QRS interval is cp normal. QT interval is normal. Interpreted by me. Reviewed by me. Administered Medications: 12:45 Drug: NS 0.9% IV 1000 ml Route: IV; Rate: 1 bolus; Site: left antecubital; kr3 12:45 Drug: Ativan IVP 1 mg Route: IVP; Site: left antecubital; kr3 14:14 Drug: Magnesium Sulfate IVPB 2 grams Route: IVPB; Infused Over: 2 hrs; Site: left ld1 antecubital; 14:14 Drug: Potassium PO Effervescent Tablet 50 mEq Route: PO; ld1 Disposition Summary: 11/04/22 16:30 Discharge Ordered Location: Home cp Problem: new cp Symptoms: have improved cp Condition: Stable cp Diagnosis - Hypomagnesemia cp - Hypokalemia cp - Abnormal results of liver function studies cp - Dizziness and giddiness cp - Pain in left forearm cp - Alcohol dependence with withdrawal, unspecified cp Followup: cp - With: Morro Gallegos MD - When: 2 - 3 days - Reason: abnormal liver enzymes Discharge Instructions: - Discharge Summary Sheet cp - Alcohol Withdrawal Syndrome cp - Potassium Content of Foods cp - Dizziness cp - Hypomagnesemia cp - Hypokalemia cp - Alcoholic Liver Disease cp - Liver Function Tests cp Forms: - Medication Reconciliation Form cp - Thank You Letter cp - Antibiotic Education cp - Prescription Opioid Use cp Prescriptions: - Meclizine 25 mg Oral Tablet - take 1 tablet by ORAL route every 8 hours As needed; 30 tablet; Refills: 0, cp Product Selection Permitted - Zofran 4 mg Oral Tablet - take 1 tablet by ORAL route every 12 hours As needed; 20 tablet; Refills: 0, cp Product Selection Permitted Signatures: Dispatcher [employer] [facility] Jackie Sanchez RN RN aa5 Jesse Galindo PA PA cp Parul Huber RN RN ld1 Kimberly Butt RN RN kr3 Javi Hall MD MD bs3 Corrections: (The following items were deleted from the chart) 14:41 14:28 Abdomen Pelvis W [id number].[id number] ordered. [facility] 11/05 16:26 16:23 Cardiovascular: Negative for chest pain, edema, palpitations, cp cp
[2022-11-04 17:21] VITALS: TEMP 97.7
[2022-11-04 17:24] VITALS: O2SAT 100
[2022-11-04 17:29] VITALS: BP 137/91
--- NOTE | 2022-11-06 11:46 | EKG ---
Test Date: 2022-11-04 Test Time: 12:34:48 Change Agent: AUDREY MEASUREMENT RESULTS: Intervals: Rate: 106 [place]: 146 QRSD: 74 QT: 352 QTc: 467 [place]: P: 58 [place]: 146 QRS: 25 T: 59 INTERPRETIVE STATEMENTS: Sinus tachycardia Low voltage QRS Borderline ECG Compared to ECG 07/10/2022 11:10:48 Myocardial infarct finding no longer present Electronically Signed On 11-06-22 11:41:52 CDT by Gavin Johnson
== END 2022-11-04 16:43 | disposition home or self-care (01) ==
LOC: ER 12:09
DX: E83.42 Hypomagnesemia (principal); E87.6 Hypokalemia; F10.239 Alcohol dependence with withdrawal, unspecified; R94.5 Abnormal results of liver function studies; M79.632 Pain in left forearm
CPT/HCPCS: 36415; 70450; 71045; 74176; 80048; 80076; 83735; 83880; 84484; 85025; 85610; 93005; 96374; 96375; 99284; G0480; J3475; J7030